=== PATIENT | female | born 1975 | race Caucasian/White ===

== ENCOUNTER → 2019-03-19 15:58 | Outpatient (BNVA) | payer BC, SELFPAY | PROVIDERS: Visit Provider Obstetrics & Gynecology | DX: D25.0 Submucous leiomyoma of uterus (principal) | CPT/HCPCS: 76830 ==

== ENCOUNTER 2019-06-24 12:52 | Outpatient (CLI) | payer BC, SELFPAY ==
--- NOTE | 2019-06-24 13:01 | MM_ITS ---
WS: [id number] BILATERAL DIGITAL SCREENING MAMMOGRAPHY WITH CAD CLINICAL INFORMATION: SCREEN HISTORY: Screening mammogram. No current complaints. COMPARISON: June 12, 2018 TECHNIQUE: Bilateral CC and MLO views. FINDINGS: The breasts are composed of heterogeneous fibroglandular density tissue, which can limit the detectio n of small underlying mass lesions. No suspicious mass, asymmetry, calcifications, or architectural d istortion. No evidence of malignancy. MM/[id number] IMPRESSION: BI-RADS: 1-Negative FOLLOW UP: 1 Year Follow-up Recommend return to annual screening mammography.
== END 2019-06-24 12:53 | disposition home or self-care (01) ==
LOC: RADSHAW 12:56
PROVIDERS: PCP Nurse Practitioner Family; Visit Provider Nurse Practitioner Family
DX: Z12.31 Encounter for screening mammogram for malignant neoplasm of breast (principal)
CPT/HCPCS: 77067

== ENCOUNTER → 2019-10-22 15:08 | Outpatient (BNVA) | payer BC, SELFPAY | PROVIDERS: PCP Nurse Practitioner Family; Referring Provider Dermatology; Visit Provider Dermatology | DX: Q82.5 Congenital non-neoplastic nevus (principal); D23.9 Other benign neoplasm of skin, unspecified; D22.9 Melanocytic nevi, unspecified | CPT/HCPCS: 99203; 99204 ==

== ENCOUNTER 2020-07-01 14:52 | Outpatient (CLI) | payer BC, SELFPAY ==
--- NOTE | 2020-07-01 14:56 | MM_ITS ---
WS: [id number] BILATERAL SCREENING DIGITAL MAMMOGRAM WITH CAD HISTORY: SCREENING COMPARISON: 06/24/2019 and 06/12/2018 Bilateral CC and MLO views submitted. Computer aided detection analyzed. Breast composition: The breasts are heterogeneously dense, which may obscure small masses. No suspici ous masses, microcalcifications or architectural distortion. MM/[id number] IMPRESSION: BI-RADS: 1-Negative FOLLOW UP: 1 Year Follow-up
== END 2020-07-01 14:53 | disposition home or self-care (01) ==
LOC: RADSHAW 14:55
PROVIDERS: PCP Nurse Practitioner Family; Visit Provider Nurse Practitioner Family
DX: Z12.31 Encounter for screening mammogram for malignant neoplasm of breast (principal)
CPT/HCPCS: 77067

== ENCOUNTER 2021-09-01 08:22 | Outpatient (CLI) | payer BC, SELFPAY ==
--- NOTE | 2021-09-01 08:35 | MM_ITS ---
WS: [id number] Exam: [place] [id number] Date/Time of Exam: 09/01/2021 8:49 AM Reason For Exam: SCREENING VIEWS: MLO and CC views both breasts. 3D digital tomosynthesis is also included in this exam. Comparison made with prior exam of 02/26/2015, 03/01/2016, 03/17/2017, 06/12/2018, 06/24/2019, 07/01/2020.. Findings: There was no sign of mass, architectural distortion or suspicious calcification in either breast. He terogeneously dense MM/[place] [id number] Impression: BI-RADS: 2-Benign FOLLOW-UP: 1 Year Follow-up This mammogram was also analyzed by the Computer Aided Detection System [employer] Publisher.
== END 2021-09-01 08:23 | disposition home or self-care (01) ==
PROVIDERS: PCP Nurse Practitioner Family; Visit Provider Nurse Practitioner Family
DX: Z12.31 Encounter for screening mammogram for malignant neoplasm of breast (principal)
CPT/HCPCS: 77063; 77067

== ENCOUNTER → 2022-05-17 11:28 | Outpatient (BNVA) | payer BC, SELFPAY | PROVIDERS: PCP Nurse Practitioner Family; Visit Provider Obstetrics & Gynecology | DX: Z12.4 Encounter for screening for malignant neoplasm of cervix (principal); D25.9 Leiomyoma of uterus, unspecified | CPT/HCPCS: 84443; 85025; 87624 ==

== ENCOUNTER 2022-05-20 12:31 | Emergency (ER) | payer BC, SELFPAY ==
[2022-05-20] VITALS (19 sets, daily range): BP systolic 118–169; BP diastolic 48–91; PULSE 94–135; RESP 14–26; TEMP 36.6–37; O2SAT 83–100; BMI 30.9
--- NOTE | 2022-05-20 14:11 | XR_ITS ---
WS: [id number] EXAMINATION: XR chest 1V portable [id number] REASON FOR EXAM: fever COMPARISON: None available. ORDER DATE: 05/20/2022 2:11 PM TECHNIQUE: A single, portable frontal chest x-ray was obtained. X-RAY FINDINGS: The lungs are clear. Pleural spaces are clear. No pleural effusions or pneumothorax. Cardiomediastinal silhouette is normal. No evidence for pulmonary edema. Soft tissue and osseous structures are unremarkable. No tubes or lines are present. XR/XR chest 1V portable [id number] IMPRESSION: Unremarkable frontal portable chest x-ray.
--- NOTE | 2022-05-20 14:13 | W.ED.FEVER ---
Documented by User: JÚNIOR Sky 05/20/22 16:32 HPI - Fever General: Chief Complaint: COVID symptoms Stated Complaint: fever, headche, stomach problems Time Seen by Provider: 05/20/22 13:38 Source: patient Mode of arrival: ambulatory Limitations: no limitations History of Present Illness: Patient is a 47-year-old female who presents to ED today with a fairly complex presentation. She states approximately 3 weeks ago she began having what she describes as UTI-like symptoms stating she was having some dysuria and urinary frequency. She was seen at [facility] walk-in clinic and placed on an antibiotic to which she does not remember the name. She states she finished the antibiotic course uneventfully but a week after she finished the course she came down with what she describes as a stomach bug with symptoms of abdominal bloating and diarrhea. She states her significant other also had similar symptoms at that time. She was re-seen in the [facility] walk-in clinic 2 days ago due to those issues. She states during that visit she had a urine repeated which again looked suspicious for UTI and was placed on Bactrim. States the diarrhea has since subsided. She states she has had 2 doses of the Bactrim. Late yesterday evening/early this morning patient began feeling acutely ill with fevers of 102, headache, chills, body aches, and a rash which is is prompting her ED visit now. Upon arrival patient appears acutely ill. Vitals overall are stable apart from fairly significant tachycardia in the 130s. MD elicited complaint: fever and other (body aches, chills) Onset (ago): hour(s) Exacerbating factors: nothing Relieving factors: nothing Associated symptoms: Reports chills, diarrhea (subsided) and headache(s); Deny abdominal pain, flank pain, chest pain, dysuria, extremity pain, nasal congestion, nausea, sinus pain or vomiting Review of Systems Const: Reports: fever(s), chills and body aches Eyes: Denies: change in vision, blurry vision, photophobia, floaters or seeing flashes ENMT: Denies: throat pain, odynophagia, ear or mastoid pain, nasal discharge, nasal congestion or sinus pain Card: Denies: chest pain Resp: Denies: dyspnea GI: Reports: diarrhea (subsided); Denies: abdominal pain, nausea or vomiting : Denies: flank pain, difficulty voiding, dysuria, urinary frequency, urinary urgency, urinary hesitancy, hematuria or pelvic pain Musc: Reports: back pain (chronic); Denies: neck pain, extremity pain, extremity swelling or joint pain Skin/Breast: Reports: rash Neuro: Reports: headache(s); Denies: numbness in extremities, weakness in extremities, sensory changes or dizziness PFSH ED PFSH: Medical History No pertinent past medical history Denies history of asthma, diabetes, hypertension, seizures, DVT/PE/clotting problems Surgical History H/O nephrolithotomy with removal of calculi Done transurethrally S/P cholecystectomy Laparoscopic procedure in her 30s S/P tubal ligation Laparoscopic procedure in 1994 via umbilicus Family History Mother Hypertension Father CAD (coronary artery disease) Other No pertinent family history Social History Smoking and tobacco status: never smoked Alcohol intake: current Alcohol intake frequency: holidays/special occasions only Alcohol type: wine 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[employer] Additional social history: Tobacco use: Denies Alcohol use: Social alcohol use once or twice a month Drug use: Denies 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 [employer] Physical Exam Const: COMMON NORMALS: average body habitus, patient oriented x3, no limitations, alert and well nourished GENERAL APPEARANCE: cooperative and ill appearing ORIENTATION/CONSCIOUSNESS: Yes awake, Yes oriented to person and Yes oriented to place HENMT: COMMON NORMALS: normocephalic and atraumatic HEAD & SCALP: normal to inspection, normocephalic and atraumatic FACE & SINUS: normal facial exam Eye: GENERAL EYE: appearance normal, both eyes and all related structures Neck/C-Spine: COMMON NORMALS: full ROM, no lymphadenopathy and no meningeal signs Chest: COMMONS NORMALS: normal inspection of the chest and normal palpation of entire chest wall Resp: COMMON NORMALS: normal respiratory effort and clear to auscultation bilaterally AUSCULTATION: clear to auscultation bilaterally Cardio: COMMON NORMALS: regular rhythm RATE: tachycardic RHYTHM: regular rhythm GI: COMMON NORMALS: Normal to inspection, nondistended, normoactive bowel sounds present, Soft to palpation, No hepatosplenomegaly present and no masses INSPECTION: Yes normal to inspection AUSCULTATION: Yes normoactive bowel sounds PALPATION: Yes Soft to palpation, Yes Tenderness to palpation present (GI) (R lower abdomen/suprapubic), No Guarding due to palpation present (GI), No Rigid due to palpation and Yes No hepatosplenomegaly present : COMMON NORMALS: Yes no CVA tenderness BLADDER/KIDNEY EXAM: Yes no CVA tenderness Back/Pelvis: COMMON NORMALS: no CVA tenderness Extremity: COMMON NORMALS: normal to inspection GENERAL: Yes normal exam except as noted Neuro: SUSAN COMA SCALE: document GCS findings Sawyer coma scale eye opening: Spontaneous Susan coma scale verbal response: Orientated Susan coma scale motor response: Obey commands Susan coma scale total score: 15 COMMON NORMALS: patient oriented x3 SENSORIUM/ORIENTATION: Yes alert, Yes oriented to person and Yes oriented to place MENINGEAL SIGNS: Yes no meningeal signs Skin: RASHES: rashes noted OTHER: Faint macular rash mainly noted to lower extremities. No ocular or mucosal involvement. No skin sloughing or blistering. Course Vital Signs: Vital signs: Vital Signs Temperature 98.6 F 05/20/22 14:18 Pulse Rate 95 05/20/22 20:15 Respiratory Rate 26 H 05/20/22 19:30 Blood Pressure 134/66 05/20/22 20:15 Pulse Oximetry 97 05/20/22 20:15 Oxygen Delivery Me thod Room Air 05/20/22 13:39 MDM - Fever Lab Data 05/20/22 14:43 05/20/22 14:43 Radiology Impressions Chest X-Ray 05/20/22 14:11 IMPRESSION: Unremarkable frontal portable chest x-ray. Abdomen/Pelvis CT 05/20/22 16:27 IMPRESSION: 1. Previous cholecystectomy. 2. No findings of urinary tract stone or obstructive uropathy or perinephric stranding. 3. Urinary bladder is not well distended and without focal abnormality. 4. Uterine enlargement. Laboratory Results WBC 12.1 10^3/uL (4.0-10.0) H 05/20/22 14:43 RBC 4.54 10^6/uL (4.1-5.3) 05/20/22 14:43 Hgb 11.1 g/dL (11.5-15.3) L 05/20/22 14:43 Hct 35.0 % (37.0-47.0) L 05/20/22 14:43 MCV 77.1 fl (81-99) L 05/20/22 14:43 MCH 24.4 pg (28.0-34.0) L 05/20/22 14:43 MCHC 31.7 g/dL (30.0-36.0) 05/20/22 14:43 RDW 13.6 % (12.1-15.1) 05/20/22 14:43 Plt Count 428 10^3/cmm (130-400) H 05/20/22 14:43 MPV 9.3 fL (7.4-10.4) 05/20/22 14:43 Neut % (Auto) 94.7 % 05/20/22 14:43 Lymph % (Auto) 1.6 % 05/20/22 14:43 [place] % (Auto) 2.1 % 05/20/22 14:43 Eos % (Auto) 1.1 % 05/20/22 14:43 Baso % (Auto) 0.1 % 05/20/22 14:43 Neut # (Auto) 11.49 10^3/uL (1.8-7.7) H 05/20/22 14:43 Lymph # (Auto) 0.2 10^3/uL (0.8-4.8) L 05/20/22 14:43 [place] # (Auto) 0.3 10^3/uL (0.2-0.9) 05/20/22 14:43 Eos # (Auto) 0.1 10^3/uL (0.0-0.8) 05/20/22 14:43 Baso # (Auto) 0.0 10^3/uL (0.0-0.1) 05/20/22 14:43 Nucleated RBC % (auto) 0 % 05/20/22 14: Nucleated RBCs # 0.0 /100WBC 05/20/22 14:43 Sodium 138 mmol/L (136-145) 05/20/22 14:43 Potassium 3.9 mmol/L (3.5-5.1) 05/20/22 14:43 Chloride 103 mmol/L (98-107) 05/20/22 14:43 Carbon Dioxide 21 mmol/L (22-29) L 05/20/22 14:43 Anion Gap 17.9 (5-19) 05/20/22 14:43 BUN 8 mg/dL (6-20) 05/20/22 14:43 Creatinine 0.8 mg/dL (0.5-0.9) 05/20/22 14:43 GFR Calculation 76.2 mL/min (90-130) L 05/20/22 14:43 Glucose 92 mg/dL (65-115) 05/20/22 14:43 Calculated Osmolality 284 mOsm/kg (285-295) L 05/20/22 14:43 Lactic Acid 2.4 mmol/L (0.5-2.2) H 05/20/22 14:43 Lactic Acid (Sepsis) 1.1 mmol/L (0.5-2.2) 05/20/22 17:17 Calcium 8.2 mg/dL (8.5-10.5) L 05/20/22 14:43 Total Bilirubin 0.2 mg/dL (0.15-1.2) 05/20/22 14:43 AST 13 U/L (0-32) 05/20/22 14:43 ALT 6 U/L (0-33) 05/20/22 14:43 Alkaline Phosphatase 108 U/L (35-105) H 05/20/22 14:43 Troponin T Baseline 6 ng/L (0-10) 05/20/22 19:14 C-Reactive Protein 53.8 mg/L (0.0-4.9) H 05/20/22 14:43 Total Protein 7.2 g/dL (6.6-8.7) 05/20/22 14:43 Albumin 3.6 g/dL (3.5-5.2) 05/20/22 14:43 Globulin 3.6 g/dL (1.3-4.6) 05/20/22 14:43 Urine Color Yellow (Yellow) 05/20/22 14:20 Urine Appearance Clear (CLEAR) 05/20/22 14:20 Urine pH 5 (5-7) 05/20/22 14:20 Ur Specific [place] 1.020 (1.005-1.030) 05/20/22 14:20 Urine Protein 1+ (Negative) H 05/20/22 14:20 Urine Glucose (UA) Norm (Normal) 05/20/22 14:20 Urine Ketones 1+ (Negative) H 05/20/22 14:20 Urine Blood 2+ (Negative) H 05/20/22 14:20 Urine Nitrate Negative (Negative) 05/20/22 14:20 Urine Bilirubin Neg (Negative) 05/20/22 14:20 Urine Urobilinogen 1 mg/dL (Negative) H 05/20/22 14:20 Ur Leukocyte Esterase Trace (Negative) H 05/20/22 14:20 Urine RBC 5-10 /hpf (0-2) H 05/20/22 14:20 Urine WBC 5-10 /hpf (0-5) H 05/20/22 14:20 Ur Squamous Epith Cells 5-10 /hpf (0-5) H 05/20/22 14:20 Amorphous Sediment Not Reportable 05/20/22 14:20 Urine Bacteria Trace /hpf (NONE) 05/20/22 14:20 Urine Mucus 2+ /hpf 05/20/22 14:20 Coronavirus 229E (PCR) Not detected (NOT DETECT) 05/20/22 14:21 Influenza Type A Ag negative (Negative) 05/20/22 14:21 Influenza Type B Ag negative (Negative) 05/20/22 14:21 SARS-CoV-2 (PCR) Not detected (NOT DETECT) 05/20/22 14:21 Discharge Plan Discharge Patient Disposition: Home Clinical Impression: Adverse reaction to sulfa antibiotic Qualifiers: Encounter type: initial encounter Qualified Code(s): T37.0X5A - Adverse effect of sulfonamides, initial encounter UTI (urinary tract infection) Qualifiers: Urinary tract infection type: acute cystitis Hematuria presence: with hematuria Qualified Code(s): N30.01 - Acute cystitis with hematuria Condition: Stable Prescriptions: New prednisone 20 mg tablet 20 mg PO BID 3 Days Qty: 6 0RF cefdinir 300 mg capsule 300 mg PO BID 10 Days Qty: 20 0RF No Action norethindrone-e.estradiol-iron [Microgestin Fe .5/30 (28)] 1.5 mg-30 mcg (21)/75 mg (7) tablet 1 tab PO DAILY loratadine [Claritin] 10 mg tablet 10 mg PO DAILY ketoconazole 2 % shampoo 1 applic TOPICAL Q14D fluocinonide 0.05 % solution 1 applic TOPICAL BID citalopram [Celexa] 20 mg tablet 30 mg PO DAILY oxybutynin chloride [Ditropan XL] 5 mg tablet extended release 24hr 5 mg PO DAILY Qty: 30 3RF Urelle 81-10.8-40.8 mg tablet 1 tab PO BID Qty: 60 3RF Rx Instructions: administer with plenty of fluids Discharge Orders: Discharge ED (Routine); Ordered 05/20/22 Ordered By: Festus Guerin Referrals: Estrellita Walsh FNP [Primary Care Provider] - Discharge Diet: Regular Discharge Activity: Increase activity as tolerated Patient Instructions: Urinary Tract Infection in Women (DC), Adverse Drug Reaction (ED) Activity Restrictions/Additional Instructions: Follow-up with medical provider as directed in the next 3 to 5 days for reevaluation. Take medications as prescribed. Return to the ER or your medical provider if condition worsens. Please read and understand discharge instructions. Thank you for choosing [facility] for your healthcare needs today. Please realize this is an emergency room and that we are providing you with a medical screening exam and this may not be complete and all inclusive of all the testing and or work up that you may need to determine your ailment or severity of your illness. It is very important that you follow up as instructed or that you return to the Emergency Department should you have concerns or if your condition changes or worsens in any way. Sign Out Sign Out Data: Patient Sign Out occurred on 05/20/22 at 17:13. Patient's care was discussed, and care was transferred from to JÚNIOR De La O. Coding Level of Care Code ED Solvent Recoverer for Chg Fwd Documented by User: JÚNIOR De La O 05/20/22 20:26 HPI - Fever General: Chief Complaint: COVID symptoms Stated Complaint: fever, headche, stomach problems Time Seen by Provider: 05/20/22 13:38 Review of Systems Const: Reports: malaise [facility] ED PFSH: Medical History No pertinent past medical history Denies history of asthma, diabetes, hypertension, seizures, DVT/PE/clotting problems Surgical History H/O nephrolithotomy with removal of calculi Done transurethrally S/P cholecystectomy Laparoscopic procedure in her 30s S/P tubal ligation Laparoscopic procedure in 1994 via umbilicus Family History Mother Hypertension Father CAD (coronary artery disease) Other No pertinent family history Social History Smoking and tobacco status: never smoked Alcohol intake: current Alcohol intake frequency: holidays/special occasions only Alcohol type: wine 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[employer] Additional social history: Tobacco use: Denies Alcohol use: Social alcohol use once or twice a month Drug use: Denies 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 History, exam and most of work-up was done by Destinee Hayward. CT of abdomen pelvis was pending during patient handoff. Patient is a 47-year-old female comes to the ED with fever, chills and headache. Patient had a UTI and took first 2 doses of Bactrim and developed a rash on extremities, elevated heart rate and generalized malaise. At triage patient's pulse was 135 and she was afebrile and rest of vitals are stable. Initial work-up was done to see if patient had UTI that progressed into pyelonephritis. White blood cell count 12.1 CRP 53.8 and first lactic was 2.4. Blood cultures pending and UA showed possible UTI. Chest x-ray was unremarkable and CT of abdomen pelvis showed no acute findings. EKG showed normal sinus rhythm, [address] segment elevation or depression seen. Baseline troponin 6. Patient was given 2 L of IV fluids, Pepcid, Solu-Medrol, pain meds and Rocephin. Lactic went down to 1.1. Rash resolved and patient was feeling a lot better. Vitals are stable and pulse was between 85 to 95 bpm. Rash resolved after the Solu-Medrol. patient was likely having some adverse reaction to Bactrim on top of a UTI. She was stable for discharge home and sent with a prescription for cefdinir and a couple days of prednisone. She was given strict return to ED precautions. Follow-up with her PCP within the next 3 to 5 days. Patient understood and agreed with plan. I discussed patient case with Dr. Garcia and he agreed with plan as well. Lab Data I reviewed the patient's lab results. 05/20/22 14:43 05/20/22 14:43 Radiology Impressions Chest X-Ray 05/20/22 14:11 IMPRESSION: Unremarkable frontal portable chest x-ray. Abdomen/Pelvis CT 05/20/22 16:27 IMPRESSION: 1. Previous cholecystectomy. 2. No findings of urinary tract stone or obstructive uropathy or perinephric stranding. 3. Urinary bladder is not well distended and without focal abnormality. 4. Uterine enlargement. Laboratory Results WBC 12.1 10^3/uL (4.0-10.0) H 05/20/22 14:43 RBC 4.54 10^6/uL (4.1-5.3) 05/20/22 14:43 Hgb 11.1 g/dL (11.5-15.3) L 05/20/22 14:43 Hct 35.0 % (37.0-47.0) L 05/20/22 14:43 MCV 77.1 fl (81-99) L 05/20/22 14:43 MCH 24.4 pg (28.0-34.0) L 05/20/22 14:43 MCHC 31.7 g/dL (30.0-36.0) 05/20/22 14:43 RDW 13.6 % (12.1-15.1) 05/20/22 14:43 Plt Count 428 10^3/cmm (130-400) H 05/20/22 14:43 MPV 9.3 fL (7.4-10.4) 05/20/22 14:43 Neut % (Auto) 94.7 % 05/20/22 14:43 Lymph % (Auto) 1.6 % 05/20/22 14:43 [place] % (Auto) 2.1 % 05/20/22 14:43 Eos % (Auto) 1.1 % 05/20/22 14:43 Baso % (Auto) 0.1 % 05/20/22 14:43 Neut # (Auto) 11.49 10^3/uL (1.8-7.7) H 05/20/22 14:43 Lymph # (Auto) 0.2 10^3/uL (0.8-4.8) L 05/20/22 14:43 [place] # (Auto) 0.3 10^3/uL (0.2-0.9) 05/20/22 14:43 Eos # (Auto) 0.1 10^3/uL (0.0-0.8) 05/20/22 14:43 Baso # (Auto) 0.0 10^3/uL (0.0-0.1) 05/20/22 14:43 Nucleated RBC % (auto) 0 % 05/20/22 14:43 Nucleated RBCs # 0.0 /100WBC 05/20/22 14:43 Sodium 138 mmol/L (136-145) 05/20/22 14:43 Potassium 3.9 mmol/L (3.5-5.1) 05/20/22 14:43 Chloride 103 mmol/L (98-107) 05/20/22 14:43 Carbon Dioxide 21 mmol/L (22-29) L 05/20/22 14:43 Anion Gap 17.9 (5-19) 05/20/22 14:43 BUN 8 mg/dL (6-20) 05/20/22 14:43 Creatinine 0.8 mg/dL (0.5-0.9) 05/20/22 14:43 GFR Calculation 76.2 mL/min (90-130) L 05/20/22 14:43 Glucose 92 mg/dL (65-115) 05/20/22 14:43 Calculated Osmolality 284 mOsm/kg (285-295) L 05/20/22 14:43 Lactic Acid 2.4 mmol/L (0.5-2.2) H 05/20/22 14:43 Lactic Acid (Sepsis) 1.1 mmol/L (0.5-2.2) 05/20/22 17:17 Calcium 8.2 mg/dL (8.5-10.5) L 05/20/22 14:43 Total Bilirubin 0.2 mg/dL (0.15-1.2) 05/20/22 14:43 AST 13 U/L (0-32) 05/20/22 14:43 ALT 6 U/L (0-33) 05/20/22 14:43 Alkaline Phosphatase 108 U/L (35-105) H 05/20/22 14:43 Troponin T Baseline 6 ng/L (0-10) 05/20/22 19:14 C-Reactive Protein 53.8 mg/L (0.0-4.9) H 05/20/22 14:43 Total Protein 7.2 g/dL (6.6-8.7) 05/20/22 14:43 Albumin 3.6 g/dL (3.5-5.2) 05/20/22 14:43 Globulin 3.6 g/dL (1.3-4.6) 05/20/22 14:43 Urine Color Yellow (Yellow) 05/20/22 14:20 Urine Appearance Clear (CLEAR) 05/20/22 14:20 Urine pH 5 (5-7) 05/20/22 14:20 Ur Specific [place] 1.020 (1.005-1.030) 05/20/22 14:20 Urine Protein 1+ (Negative) H 05/20/22 14:20 Urine Glucose (UA) Norm (Normal) 05/20/22 14:20 Urine Ketones 1+ (Negative) H 05/20/22 14:20 Urine Blood 2+ (Negative) H 05/20/22 14:20 Urine Nitrate Negative (Negative) 05/20/22 14:20 Urine Bilirubin Neg (Negative) 05/20/22 14:20 Urine Urobilinogen 1 mg/dL (Negative) H 05/20/22 14:20 Ur Leukocyte Esterase Trace (Negative) H 05/20/22 14:20 Urine RBC 5-10 /hpf (0-2) H 05/20/22 14:20 Urine WBC 5-10 /hpf (0-5) H 05/20/22 14:20 Ur Squamous Epith Cells 5-10 /hpf (0-5) H 05/20/22 14:20 Amorphous Sediment Not Reportable 05/20/22 14:20 Urine Bacteria Trace /hpf (NONE) 05/20/22 14:20 Urine Mucus 2+ /hpf 05/20/22 14:20 Coronavirus 229E (PCR) Not detected (NOT DETECT) 05/20/22 14:21 Influenza Type A Ag negative (Negative) 05/20/22 14:21 Influenza Type B Ag negative (Negative) 05/20/22 14:21 SARS-CoV-2 (PCR) Not detected (NOT DETECT) 05/20/22 14:21 Discharge Plan Discharge Patient Disposition: Home Clinical Impression: Adverse reaction to sulfa antibiotic Qualifiers: Encounter type: initial encounter Qualified Code(s): T37.0X5A - Adverse effect of sulfonamides, initial encounter UTI (urinary tract infection) Qualifiers: Urinary tract infection type: acute cystitis Hematuria presence: with hematuria Qualified Code(s): N30.01 - Acute cystitis with hematuria Condition: Stable Prescriptions: New prednisone 20 mg tablet 20 mg PO BID 3 Days Qty: 6 0RF cefdinir 300 mg capsule 300 mg PO BID 10 Days Qty: 20 0RF No Action norethindrone-e.estradiol-iron [Microgestin Fe 1.5/30 (28)] 1.5 mg-30 mcg (21)/75 mg (7) tablet 1 tab PO DAILY loratadine [Claritin] 10 mg tablet 10 mg PO DAILY ketoconazole 2 % shampoo 1 applic TOPICAL Q14D fluocinonide 0.05 % solution 1 applic TOPICAL BID citalopram [Celexa] 20 mg tablet 30 mg PO DAILY oxybutynin chloride [Ditropan XL] 5 mg tablet extended release 24hr 5 mg PO DAILY Qty: 30 3RF Urelle 81-10.8-40.8 mg tablet 1 tab PO BID Qty: 60 3RF Rx Instructions: administer with plenty of fluids Discharge Orders: Discharge ED (Routine); Ordered 05/20/22 Ordered By: Festus Guerin Referrals: Estrellita Walsh FNP [Primary Care Provider] - Discharge Diet: Regular Discharge Activity: Increase activity as tolerated Patient Instructions: Urinary Tract Infection in Women (DC), Adverse Drug Reaction (ED) Activity Restrictions/Additional Instructions: Follow-up with medical provider as directed in the next 3 to 5 days for reevaluation. Take medications as prescribed. Return to the ER or your medical provider if condition worsens. Please read and understand discharge instructions. Thank you for choosing [facility] for your healthcare needs today. Please realize this is an emergency room and that we are providing you with a medical screening exam and this may not be complete and all inclusive of all the testing and or work up that you may need to determine your ailment or severity of your illness. It is very important that you follow up as instructed or that you return to the Emergency Department should you have concerns or if your condition changes or worsens in any way. Sign Out Sign Out Data: Patient Sign Out occurred on 05/20/22 at 17:13. Patient's care was discussed, and care was transferred from to JÚNIOR De La O. Coding Level of Care Code ED Solvent Recoverer for Chg Fwd Documented by User: Michele Garcia, 05/21/22 02:46 HPI - Fever General: Chief Complaint: COVID symptoms Stated Complaint: fever, headche, stomach problems Time Seen by Provider: 05/20/22 13:38 PFSH ED PFSH: Medical History No pertinent past medical history Denies history of asthma, diabetes, hypertension, seizures, DVT/PE/clotting problems Surgical History H/O nephrolithotomy with removal of calculi Done transurethrally S/P cholecystectomy Laparoscopic procedure in her 30s S/P tubal ligation Laparoscopic procedure in 1994 via umbilicus Family History Mother Hypertension Father CAD (coronary artery disease) Other No pertinent family history Social History Smoking and tobacco status: never smoked Alcohol intake: current Alcohol intake frequency: holidays/special occasions only Alcohol type: wine 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[employer] Additional social history: Tobacco use: Denies Alcohol use: Social alcohol use once or twice a month Drug use: Denies 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 History, exam and most of work-up was done by Destinee Hayward. CT of abdomen pelvis was pending during patient handoff. Patient is a 47-year-old female comes to the ED with fever, chills and headache. Patient had a UTI and took first 2 doses of Bactrim and developed a rash on extremities, elevated heart rate and generalized malaise. At triage patient's pulse was 135 and she was afebrile and rest of vitals are stable. Initial work-up was done to see if patient had UTI that progressed into pyelonephritis. White blood cell count 12.1 CRP 53.8 and first lactic was 2.4. Blood cultures pending and UA showed possible UTI. Chest x-ray was unremarkable and CT of abdomen pelvis showed no acute findings. EKG showed normal sinus rhythm, [address] segment elevation or depression seen. Baseline troponin 6. Patient was given 2 L of IV fluids, Pepcid, Solu-Medrol, pain meds and Rocephin. Lactic went down to 1.1. Rash resolved and patient was feeling a lot better. Vitals are stable and pulse was between 85 to 95 bpm. Rash resolved after the Solu-Medrol. patient was likely having some adverse reaction to Bactrim on top of a UTI. She was stable for discharge home and sent with a prescription for cefdinir and a couple days of prednisone. She was given strict return to ED precautions. Follow-up with her PCP within the next 3 to 5 days. Patient understood and agreed with plan. I discussed patient case with Dr. Garcia and he agreed with plan as well. This patient was originally seen by Mr. Apoorva PA-C.? I agree with his history, evaluation, and treatment. Lab Data 05/20/22 14:43 05/20/22 14:43 Radiology Impressions Chest X-Ray 05/20/22 14:11 IMPRESSION: Unremarkable frontal portable chest x-ray. Abdomen/Pelvis CT 05/20/22 16:27 IMPRESSION: 1. Previous cholecystectomy. 2. No findings of urinary tract stone or obstructive uropathy or perinephric stranding. 3. Urinary bladder is not well distended and without focal abnormality. 4. Uterine enlargement. Laboratory Results WBC 12.1 10^3/uL (4.0-10.0) H 05/20/22 14:43 RBC 4.54 10^6/uL (4.1-5.3) 05/20/22 14:43 Hgb 11.1 g/dL (11.5-15.3) L 05/20/22 14:43 Hct 35.0 % (37.0-47.0) L 05/20/22 14:43 MCV 77.1 fl (81-99) L 05/20/22 14:43 MCH 24.4 pg (28.0-34.0) L 05/20/22 14:43 MCHC 31.7 g/dL (30.0-36.0) 05/20/22 14:43 RDW 13.6 % (12.1-15.1) 05/20/22 14:43 Plt Count 428 10^3/cmm (130-400) H 05/20/22 14:43 MPV 9.3 fL (7.4-10.4) 05/20/22 14:43 Neut % (Auto) 94.7 % 05/20/22 14:43 Lymph % (Auto) 1.6 % 05/20/22 14:43 [place] % (Auto) 2.1 % 05/20/22 14:43 Eos % (Auto) 1.1 % 05/20/22 14:43 Baso % (Auto) 0.1 % 05/20/22 14:43 Neut # (Auto) 11.49 10^3/uL (1.8-7.7) H 05/20/22 14:43 Lymph # (Auto) 0.2 10^3/uL (0.8-4.8) L 05/20/22 14:43 [place] # (Auto) 0.3 10^3/uL (0.2-0.9) 05/20/22 14:43 Eos # (Auto) 0.1 10^3/uL (0.0-0.8) 05/20/22 14:43 Baso # (Auto) 0.0 10^3/uL (0.0-0.1) 05/20/22 14:43 Nucleated RBC % (auto) 0 % 05/20/22 14:43 Nucleated RBCs # 0.0 /100WBC 05/20/22 14:43 Sodium 138 mmol/L (136-145) 05/20/22 14:43 Potassium 3.9 mmol/L (3.5-5.1) 05/20/22 14:43 Chloride 103 mmol/L (98-107) 05/20/22 14:43 Carbon Dioxide 21 mmol/L (22-29) L 05/20/22 14:43 Anion Gap 17.9 (5-19) 05/20/22 14:43 BUN 8 mg/dL (6-20) 05/20/22 14:43 Creatinine 0.8 mg/dL (0.5-0.9) 05/20/22 14:43 GFR Calculation 76.2 mL/min (90-130) L 05/20/22 14:43 Glucose 92 mg/dL (65-115) 05/20/22 14:43 Calculated Osmolality 284 mOsm/kg (285-295) L 05/20/22 14:43 Lactic Acid 2.4 mmol/L (0.5-2.2) H 05/20/22 14:43 Lactic Acid (Sepsis) 1.1 mmol/L (0.5-2.2) 05/20/22 17:17 Calcium 8.2 mg/dL (8.5-10.5) L 05/20/22 14:43 Total Bilirubin 0.2 mg/dL (0.15-1.2) 05/20/22 14:43 AST 13 U/L (0-32) 05/20/22 14:43 ALT 6 U/L (0-33) 05/20/22 14:43 Alkaline Phosphatase 108 U/L (35-105) H 05/20/22 14:43 Troponin T Baseline 6 ng/L (0-10) 05/20/22 19:14 C-Reactive Protein 53.8 mg/L (0.0-4.9) H 05/20/22 14:43 Total Protein 7.2 g/dL (6.6-8.7) 05/20/22 14:43 Albumin 3.6 g/dL (3.5-5.2) 05/20/22 14:43 Globulin 3.6 g/dL (1.3-4.6) 05/20/22 14:43 Urine Color Yellow (Yellow) 05/20/22 14:20 Urine Appearance Clear (CLEAR) 05/20/22 14:20 Urine pH 5 (5-7) 05/20/22 14:20 Ur Specific [place] 1.020 (1.005-1.030) 05/20/22 14:20 Urine Protein 1+ (Negative) H 05/20/22 14:20 Urine Glucose (UA) Norm (Normal) 05/20/22 14:20 Urine Ketones 1+ (Negative) H 05/20/22 14:20 Urine Blood 2+ (Negative) H 05/20/22 14:20 Urine Nitrate Negative (Negative) 05/20/22 14:20 Urine Bilirubin Neg (Negative) 05/20/22 14:20 Urine Urobilinogen 1 mg/dL (Negative) H 05/20/22 14:20 Ur Leukocyte Esterase Trace (Negative) H 05/20/22 14:20 Urine RBC 5-10 /hpf (0-2) H 05/20/22 14:20 Urine WBC 5-10 /hpf (0-5) H 05/20/22 14:20 Ur Squamous Epith Cells 5-10 /hpf (0-5) H 05/20/22 14:20 Amorphous Sediment Not Reportable 05/20/22 14:20 Urine Bacteria Trace /hpf (NONE) 05/20/22 14:20 Urine Mucus 2+ /hpf 05/20/22 14:20 Coronavirus 229E (PCR) Not detected (NOT DETECT) 05/20/22 14:21 Influenza Type A Ag negative (Negative) 05/20/22 14:21 Influenza Type B Ag negative (Negative) 05/20/22 14:21 SARS-CoV-2 (PCR) Not detected (NOT DETECT) 05/20/22 14:21 Discharge Plan Discharge Patient Disposition: Home Clinical Impression: Adverse reaction to sulfa antibiotic Qualifiers: Encounter type: initial encounter Qualified Code(s): T37.0X5A - Adverse effect of sulfonamides, initial encounter UTI (urinary tract infection) Qualifiers: Urinary tract infection type: acute cystitis Hematuria presence: with hematuria Qualified Code(s): N30.01 - Acute cystitis with hematuria Condition: Stable Prescriptions: New prednisone 20 mg tablet 20 mg PO BID 3 Days Qty: 6 0RF cefdinir 300 mg capsule 300 mg PO BID 10 Days Qty: 20 0RF No Action norethindrone-e.estradiol-iron [Microgestin Fe 1.5/30 (28)] 1.5 mg-30 mcg (21)/75 mg (7) tablet 1 tab PO DAILY loratadine [Claritin] 10 mg tablet 10 mg PO DAILY ketoconazole 2 % shampoo 1 applic TOPICAL Q14D fluocinonide 0.05 % solution 1 applic TOPICAL BID citalopram [Celexa] 20 mg tablet 30 mg PO DAILY oxybutynin chloride [Ditropan XL] 5 mg tablet extended release 24hr 5 mg PO DAILY Qty: 30 3RF Urelle 81-10.8-40.8 mg tablet 1 tab PO BID Qty: 60 3RF Rx Instructions: administer with plenty of fluids Discharge Orders: Discharge ED (Routine); Ordered 05/20/22 Ordered By: Festus Guerin Referrals: Walsh,JERSON HaroP [Primary Care Provider] - Discharge Diet: Regular Discharge Activity: Increase activity as tolerated Patient Instructions: Urinary Tract Infection in Women (DC), Adverse Drug Reaction (ED) Activity Restrictions/Additional Instructions: Follow-up with medical provider as directed in the next 3 to 5 days for reevaluation. Take medications as prescribed. Return to the ER or your medical provider if condition worsens. Please read and understand discharge instructions. Thank you for choosing [facility] for your healthcare needs today. Please realize this is an emergency room and that we are providing you with a medical screening exam and this may not be complete and all inclusive of all the testing and or work up that you may need to determine your ailment or severity of your illness. It is very important that you follow up as instructed or that you return to the Emergency Department should you have concerns or if your condition changes or worsens in any way. Sign Out Sign Out Data: Patient Sign Out occurred on 05/20/22 at 17:13. Patient's care was discussed, and care was transferred from to JÚNIOR De La O. Coding Level of Care Code ED Solvent Recoverer for Julián Angel
[2022-05-20 14:41] LABS: Urine Appearance Clear (CLEAR); Urine Color Yellow (Yellow); pH Urine 5 (5-7)
[2022-05-20 14:42] LABS: Add Urine Microscopic? YES; Bilirubin Urine Neg (Negative); Blood Urine 2+ (Negative); Glucose Urine UA Norm (Normal); Ketones Urine 1+ (Negative); Leukocyte Esterase Urine Trace (Negative); Nitrate Urine Negative (Negative); Protein Urine 1+ (Negative); Urobilinogen Urine 1 mg/dL (Negative)
[2022-05-20 14:47] LABS: Influenza A by IFA negative (Negative); Influenza B by IFA negative (Negative)
[2022-05-20 14:51] LABS: Bacteria Urine TRACE /hpf; Mucus Urine 2+ /hpf
[2022-05-20 14:52] LABS: Add Urine Culture? No
[2022-05-20 15:08] LABS: Basophils % 0.1 %; Eosinophils # 0.1 10^3/uL (0.0-0.8); Eosinophils % 1.1 %; Hemoglobin 11.1 g/dL (11.5-15.3); Lymphocytes # 0.2 10^3/uL (0.8-4.8); Lymphocytes % 1.6 %; Mean Corpuscular HGB Conc 31.7 g/dL (30.0-36.0); Mean Corpuscular Hemoglobin 24.4 pg (28.0-34.0); Mean Corpuscular Volume 77.1 fl (81-99); Mean Platelet Volume 9.3 fL (7.4-10.4); Monocytes # 0.3 10^3/uL (0.2-0.9); Monocytes % 2.1 %; Neutrophils # 11.49 10^3/uL (1.8-7.7); Neutrophils % 94.7 %; Nucleated Red Blood Cells % 0 %; Platelet Count 428 10^3/cmm (130-400); Red Blood Count 4.54 10^6/uL (4.1-5.3); Red Cell Distribution Width 13.6 % (12.1-15.1); White Blood Count 12.1 10^3/uL (4.0-10.0)
[2022-05-20] MEDS: acetaminophen 1,000 MG/100 ML PIGGYBACK 400 MG IV (15:14)
[2022-05-20] MEDS: sodium chloride 0.9% 1,000 ML 999 ML IV ×2 (15:14→18:17)
[2022-05-20 15:26] LABS: Lactic Sepsis W/Reflex 2.4 mmol/L (0.5-2.2)
[2022-05-20 15:27] LABS: Alanine Aminotransferase 6 U/L (0-33); Albumin Level 3.6 g/dL (3.5-5.2); Alkaline Phosphatase 108 U/L (35-105); Anion Gap 17.9 (5-19); Aspartate Amino Transferase 13 U/L (0-32); Blood Urea Nitrogen 8 mg/dL (6-20); C Reactive Protein 53.8 mg/L (0.0-4.9); Calcium 8.2 mg/dL (8.5-10.5); Carbon Dioxide 21 mmol/L (22-29); Chloride 103 mmol/L (98-107); Globulin 3.6 g/dL (1.3-4.6); Glomerular Filtration Rate 76.2 mL/min (90-130); Glucose 92 mg/dL (65-115); Osmolality Calculated 284 mOsm/kg (285-295); Potassium 3.9 mmol/L (3.5-5.1); Sodium 138 mmol/L (136-145); Total Bilirubin 0.2 mg/dL (0.15-1.2); Total Protein 7.2 g/dL (6.6-8.7)
[2022-05-20 16:09] LABS: Adenovirus Not Detected (NOT DETECT); Chlamydia Pneumoniae Not Detected (NOT DETECT); Coronavirus 229E,HKU1,NL63,OC4 Not Detected (NOT DETECT); Human Metapneumovirus Not Detected (NOT DETECT); Human Rhinovirus/Enterovirus Not Detected (NOT DETECT); Influenza A Not Detected (NOT DETECT); Influenza A H1 Not Detected (NOT DETECT); Influenza A H1-2009 Not Detected (NOT DETECT); Influenza A H3 Not Detected (NOT DETECT); Influenza B Not Detected (NOT DETECT); Mycoplasma Pneumoniae Not Detected (NOT DETECT); Parainfluenza Virus Type 1 Not Detected (NOT DETECT); Parainfluenza Virus Type 2 Not Detected (NOT DETECT); Parainfluenza Virus Type 3 Not Detected (NOT DETECT); Parainfluenza Virus Type 4 Not Detected (NOT DETECT); Respiratory Syncytial Virus A Not Detected (NOT DETECT); Respiratory Syncytial Virus B Not Detected (NOT DETECT); SARS-COV-2 Not Detected (NOT DETECT)
--- NOTE | 2022-05-20 16:27 | CTR_ITS ---
PROCEDURE INFORMATION: Exam: CT Abdomen And Pelvis Without Contrast Exam date and time: 05/20/2022 4:37 PM Age: 47 years old Clinical indication: Abdominal pain; Other: Low abd pain/back pain; Prior surgery; Surgery type: Tubal; Nephrolithotomy w/removal of calculi; Olivia; Additional info: Lower abdominal pain, fevers, poss UTI TECHNIQUE: Imaging protocol: Computed tomography of the abdomen and pelvis without contrast. Radiation optimization: All CT scans at this facility use at least one of these dose optimization techniques: automated exposure control; mA and/or kV adjustment per patient size (includes targeted exams where dose is matched to clinical indication); or iterative reconstruction. REPORTING DATA: Count of CT and Cardiac NM exams in prior 12 months: This patient has received 0 known CTs and 0 known cardiac nuclear medicine studies in the 12 months prior to the current study. COMPARISON: CR XR KUB [id number] 07/31/2018 8:07 AM RADIATION DOSE METRICS: Total DLP (mGy-cm): 684.18 FINDINGS: Lungs: No significant infiltrate or effusion is seen within the lung bases. Liver: Normal. No mass. Gallbladder and bile ducts: Surgical clips within the gallbladder fossa of prior cholecystectomy. No biliary ductal dilatation. Pancreas: Normal. No ductal dilation. Spleen: Normal. No splenomegaly. Adrenal glands: Normal. No mass. Kidneys and ureters: No urinary tract stone or obstructive uropathy. Kidneys appear unremarkable in density for noncontrast exam. No abnormal perinephric stranding is seen. Stomach and bowel: Left colon appears relatively decompressed in relation to the remainder of the colon. No significant focal abnormality, otherwise. No CT findings of diverticulitis. No bowel obstruction. Appendix: No evidence of appendicitis. Intraperitoneal space: Unremarkable. No free air. No significant fluid collection. Vasculature: Unremarkable. No abdominal aortic aneurysm. Lymph nodes: Unremarkable. No enlarged lymph nodes. Urinary bladder: Urinary bladder is not well distended and without focal abnormality. Reproductive: Uterine enlargement suggested, with uterus measuring 12 cm on sagittal exam and 10 x 7 cm on axial exam. Uterus appears unremarkable in density for noncontrast exam. No significant adnexal abnormality. Bones/joints: No acute osseous abnormality. Soft tissues: Unremarkable. CT/CT kidney stone [id number] IMPRESSION: 1. Previous cholecystectomy. 2. No findings of urinary tract stone or obstructive uropathy or perinephric stranding. 3. Urinary bladder is not well distended and without focal abnormality. 4. Uterine enlargement.
[2022-05-20] MEDS: ketorolac 30 mg/mL INJ 15 MG IVP (16:35)
[2022-05-20 16:52] LABS: Reflex Lactate Order REFLEX LACTIC ORDERD
[2022-05-20] MEDS: morphine 4 mg/mL SDV 1 mL IVP (17:35)
[2022-05-20] MEDS: orphenadrine 30 mg/mL Inj 2 mL 60 MG IVP (17:35)
[2022-05-20] MEDS: cefTRIAXone 1,000 MG in sodium chloride 0.9% (plus) 50 ML 100 MG IV ×2 (18:17→19:07)
[2022-05-20 18:25] LABS: Lactic Acid level (Lactate) 1.1 mmol/L (0.5-2.2)
[2022-05-20] MEDS: famotidine 20 mg/2 mL INJ 40 MG IVP (18:34)
[2022-05-20] MEDS: ondansetron 2 mg/ML SDV 2 mL 4 MG IVP (18:34)
--- NOTE | 2022-05-20 19:03 | ECG_ITS ---
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 Measurements Intervals [place] Rate: 89 P: 56 TN: 142 QRS: 24 QRSD: 93 T: 3 QT: 387 QTc: 471 Interpretive Statements SINUS RHYTHM NONSPECIFIC T-WAVE ABNORMALITY Compared to ECG 02/08/2017 05:14:04 T-wave abnormality now present Electronically Signed On 05-21-2022 10:29:41 CDT by Karel Hardy M.D. [id number]
[2022-05-20] MEDS: lidocaine 2% viscous 15 ML, aluminum-mag hydrox-simethicon 30 ML, sucralfate oral liq 1 GM PO (19:06)
[2022-05-20 19:47] LABS: Troponin(5th) Baseline 6 ng/L (0-10)
[2022-05-23 16:29] LABS: Lyme AB Screen <0.90 index
[2022-05-26 21:29] LABS: RMSF IGG NOT DETECTED; RMSF IGM NOT DETECTED
[2022-05-27 17:15] LABS: E. Chaffeensis AB IGG <1:64; E. Chaffeensis AB IGM <1:20
== END 2022-05-20 20:18 | disposition home or self-care (01) ==
PROVIDERS: Physician Assistant; Emergency Provider Physician Assistant; PCP Nurse Practitioner Family
DX: N30.01 Acute cystitis with hematuria (principal); T37.0X5A Adverse effect of sulfonamides, initial encounter; Z20.822 Contact with and (suspected) exposure to COVID-19; X58.XXXA Exposure to other specified factors, initial encounter
CPT/HCPCS: 71045; 74176; 80053; 81001; 83605; 84484; 85025; 86140; 86618; 86666; 86757; 87040; 87635; 87804; 93005; 96365; 96366; 96375; 99285; J0131; J0696; J1885; J2270; J2360; J2405; J2930; J3490; J7030

== ENCOUNTER → 2022-05-23 10:17 | Outpatient (BNVA) | payer BC, SELFPAY | PROVIDERS: PCP Nurse Practitioner Family; Visit Provider Obstetrics & Gynecology | DX: N92.0 Excessive and frequent menstruation with regular cycle (principal); D25.9 Leiomyoma of uterus, unspecified | CPT/HCPCS: 76830 ==

== ENCOUNTER 2022-06-09 11:46 | Day surgery (SDC) | payer BC, SELFPAY ==
[2022-06-08 12:04] VITALS: BMI 30.9
[2022-06-09] VITALS (8 sets, daily range): BP systolic 127–143; BP diastolic 68–94; PULSE 87–110; RESP 16–20; TEMP 36.2–36.6; O2SAT 94–100
[2022-06-09 12:04] LABS: OR HCG Qualitative Urine Negative (Negative)
--- NOTE | 2022-06-09 12:06 | P.ANESASSM_ITS ---
Pre-Anesthetic Assessment Height/Weight: Height 1.63 m Weight 81.647 kg Temp Pulse Resp BP Pulse Ox O2 Del Method 97.9 F 110 H 16 143/94 98 Room Air 06/09/22 11:59 06/09/22 11:59 06/09/22 11:59 06/09/22 11:59 06/09/22 11:59 06/09/22 11:59 Preop Diagnosis: abnormal uterine bleeing Operation Date: 06/09/22 13:25 Proposed Procedures p Hysteroscopy with Myosure, endometrial sampling 50730, possible endometrial polypectomy 50346, N93.9(Not Applicable) - Fernando Moses MD s Poylpectomy(Not Applicable) - Fernando Moses MD Familial anesthetic complications: NOne Was Beta Adán taken within 24 hours: N/A Was Clonidine taken within 24 hours: N/A Last intake: Intake Last Liquid Date 06/09/22 Last Liquid Time 06:00 Last Solid Date 06/08/22 Last Solid Time 11:00 Social No alcohol and No tobacco Exam alert, oriented x 3, clear to auscultation bilaterally and regular rate & rhythm Airway Mallampati: Class II Dentition: full Neuropsych Anxiety Anesthetic Plan ASA status: 2 Anesthesia: General Risk of > 500 ml blood loss (7ml/kg in children): No Medications/Allergies Home Medications Medication Instructions Recorded Confirmed Last Taken Type norethindrone 1.5 mg-ethinyl 1 tab PO DAILY 04/08/19 06/08/22 06/08/22 History estradiol 30 mcg(21)/iron 75 mg(7) tablet (Microgestin Fe 1.5/30 (28)) ketoconazole 2 % shampoo 1 applic topical Q14D 10/22/19 06/08/22 Unknown History loratadine 10 mg tablet (Claritin) 10 mg PO DAILY 10/22/19 06/08/22 06/08/22 History citalopram 20 mg tablet (Celexa) 30 mg PO DAILY 05/17/22 06/08/22 06/08/22 History Allergies Allergy/AdvReac Type Severity Reaction Status Date / Time codeine Allergy ALGY-Hives Verified 06/09/22 12:06 sulfamethoxazole Allergy ALGY-Rash Verified 06/09/22 12:06 [From Bactrim] tramadol Allergy ALGY-Rash Verified 06/09/22 12:06 trimethoprim [From Bactrim] Allergy ALGY-Rash Verified 06/09/22 12:06 [facility] Anesthesia Medical History (Updated 05/28/22 @ 00:01 by BHARAT Welch) No pertinent past medical history Denies history of asthma, diabetes, hypertension, seizures, DVT/PE/clotting problems Surgical History H/O nephrolithotomy with removal of calculi Done transurethrally S/P cholecystectomy Laparoscopic procedure in her 30s S/P tubal ligation Laparoscopic procedure in 1994 via umbilicus Family History Mother Hypertension Father CAD (coronary artery disease) Other No pertinent family history Social History Smoking and tobacco status: never smoked Alcohol intake: current Alcohol intake frequency: holidays/special occasions only Alcohol type: wine Substance/Drug Use: never 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
[2022-06-09] MEDS: sodium chloride 0.9% 1,000 ML 30 ML IV (12:10)
--- NOTE | 2022-06-09 14:05 | W.PM.OPSFHP ---
Same Day Surgery H&P Indication for Procedure/HPI DATE OF PROCEDURE: June 09, 2022 CHIEF COMPLAINT/INDICATIONFOR SURGICAL PROCEDURE: abnormal uterine bleeding PREOP DIAGNOSIS: abnormal uterine bleeing PLANNED PROCEDURE: Operation Date: 06/09/22 13:25 Proposed Procedures p Hysteroscopy with Myosure, endometrial sampling 53414, possible endometrial polypectomy 12423, N93.9(Not Applicable) - Fernando Moses MD s Poylpectomy(Not Applicable) - Fernando Moses MD Medications/Allergies* Home Medications Medication Instructions Recorded Confirmed Type norethindrone 1.5 mg-ethinyl 1 tab PO DAILY 04/08/19 06/08/22 History estradiol 30 mcg(21)/iron 75 mg(7) tablet (Microgestin Fe 1.5/30 (28)) ketoconazole 2 % shampoo 1 applic topical Q14D 10/22/19 06/08/22 History loratadine 10 mg tablet (Claritin) 10 mg PO DAILY 10/22/19 06/09/22 History citalopram 20 mg tablet (Celexa) 30 mg PO DAILY 05/17/22 06/08/22 History Allergies/Adverse Reactions Allergy/AdvReac Type Severity Reaction Status Date / Time codeine Allergy ALGY-Hives Verified 06/09/22 12:06 sulfamethoxazole Allergy ALGY-Rash Verified 06/09/22 12:06 [From Bactrim] tramadol Allergy ALGY-Rash Verified 06/09/22 12:06 trimethoprim [From Bactrim] Allergy ALGY-Rash Verified 06/09/22 12:06 Current Medications: Generic Name Dose Route Start Last Admin Trade Name Freq PRN Reason Stop Dose Admin Sodium Chloride 1,000 mls @ 30 mls/hr 06/09/22 12:00 06/09/22 12:10 Sodium Chloride 0.9% IV 06/10/22 11:59 30 mls/hr .Q24H CHAUNCEY Administration Pertinent History/Comorbid Conditions* Medical History (Updated 05/28/22 @ 00:01 by BHARAT Welch) No pertinent past medical history Denies history of asthma, diabetes, hypertension, seizures, DVT/PE/clotting problems Surgical History (Updated 04/08/19 @ 16:23 by Marlo Ryan MD) H/O nephrolithotomy with removal of calculi Done transurethrally S/P cholecystectomy Laparoscopic procedure in her 30s S/P tubal ligation Laparoscopic procedure in 1994 via umbilicus Family History (Updated 04/08/19 @ 16:27 by Marlo Ryan MD) No pertinent family history CAD (coronary artery disease) Father Hypertension Mother Social History Smoking and tobacco status: never smoked Alcohol intake: current Alcohol intake frequency: holidays/special occasions only Alcohol type: wine Substance/Drug Use: never 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
--- NOTE | 2022-06-09 17:06 | ANE.PACU2 ---
Inpatient post-anesthesia follow up: Airway intact: Yes Vital signs: Temperature 97.2 F Pulse Rate 91 Respiratory Rate 18 Blood Pressure 132/68 Pulse Oximetry 98 Oxygen Delivery Me thod Room Air Oxygen Flow Rate 6 Fraction of Inspir ed Oxygen Hydration adequate: Yes Nausea and vomiting: No Pain level: 1 Mental status: Baseline
--- NOTE | 2022-06-09 23:10 | PM.OP ---
Operative Report Date of procedure: June 09, 2022 Pre-op diagnosis: Preop Diagnosis abnormal uterine bleeing Post-op diagnosis: same Post-op findings: uterus sounded to 9 cm one 2 cm subendometrial fibroid seen no polyps otherwise normal endometrial cavity Procedure done: hysteroscopy curettage of uterus Specimens removed/disposition: endometrial curettings Surgeon: Fernando Moses M.D. Anesthesia: MAC Estimated blood loss (mL): 5 Complications: none Condition: stable Disposition: PACU Brief History: patient with abnormal uterine bleeding Procedure: Informed consent signed. Patient taken to the operating room. Anesthesia induced. Patient was placed in dorsolithotomy position, prepped and draped for hysteroscopy. A bivalve speculum was placed in the vagina. The anterior lip of the cervix was grasped with a sharp-toothed tenaculum. The cervix was serially dilated with Hegar dilators. . A hysteroscope was placed into the endometrial cavity. The endometrial cavity was seen to be normal except for one 2 cm subendometrial fibroid. There were no polyps. There was small amount of endometrial tissue. The hysteroscope was then removed. Endometrial curettage was done with a sharp curette. Endometrial tissue was sent to pathology. The sharp-toothed tenaculum was removed. There was no bleeding from the endometrial cavity or cervix. The patient was then placed supine and awakened and taken to the PACU. Postop condition: stable EBL: 5 cc Sponge and instruments counts were normal x 2 Complications: none
== END 2022-06-09 16:05 | disposition home or self-care (01) ==
PROVIDERS: Anesthesiology; PCP Nurse Practitioner Family; Visit Provider Obstetrics & Gynecology
PROC: 0UDB8ZZ Extraction of Endometrium, Via Natural or Artificial Opening Endoscopic (ICD-10-PCS; CPT 58558; principal; 2022-06-09 13:15)
DX: D25.9 Leiomyoma of uterus, unspecified (principal); Z88.2 Allergy status to sulfonamides; Z88.5 Allergy status to narcotic agent
CPT/HCPCS: 58563; 81025; 84703; 88305; J1100; J1885; J2250; J2405; J2704; J3010; J7030

== ENCOUNTER 2022-06-14 20:31 | Emergency (ER) | payer BC, SELFPAY ==
[2022-06-14 20:37] VITALS: BP 176/99; PULSE 99; RESP 15; TEMP 36.9; O2SAT 98
[2022-06-14 21:20] LABS: Basophils # 0.1 10^3/uL (0.0-0.1); Basophils % 0.4 %; Eosinophils # 0.7 10^3/uL (0.0-0.8); Eosinophils % 4.7 %; Hemoglobin 10.8 g/dL (11.5-15.3); Lymphocytes # 4.1 10^3/uL (0.8-4.8); Lymphocytes % 29.5 %; Mean Corpuscular HGB Conc 30.9 g/dL (30.0-36.0); Mean Corpuscular Hemoglobin 24.4 pg (28.0-34.0); Mean Corpuscular Volume 79.2 fl (81-99); Mean Platelet Volume 9.4 fL (7.4-10.4); Monocytes # 0.8 10^3/uL (0.2-0.9); Monocytes % 6.1 %; Neutrophils % 58.9 %; Nucleated Red Blood Cells % 0 %; Platelet Count 468 10^3/cmm (130-400); Red Blood Count 4.42 10^6/uL (4.1-5.3); Red Cell Distribution Width 15.2 % (12.1-15.1); White Blood Count 13.8 10^3/uL (4.0-10.0)
--- NOTE | 2022-06-14 21:24 | CTR_ITS ---
PROCEDURE INFORMATION: Exam: CT Abdomen And Pelvis With Contrast Exam date and time: 06/14/2022 9:51 PM Age: 47 years old Clinical indication: Abdominal pain; Prior surgery; Surgery date: 6+ months; Surgery type: Gb nephrectomy; Additional info: Abd pain/vag bleeding TECHNIQUE: Imaging protocol: Computed tomography of the abdomen and pelvis with contrast. Radiation optimization: All CT scans at this facility use at least one of these dose optimization techniques: automated exposure control; mA and/or kV adjustment per patient size (includes targeted exams where dose is matched to clinical indication); or iterative reconstruction. Contrast material: OMNI 350; Contrast volume: 70 ml; Contrast route: INTRAVENOUS (IV); REPORTING DATA: Count of CT and Cardiac NM exams in prior 12 months: This patient has received [address] and 0 known cardiac nuclear medicine studies in the 12 months prior to the current study. COMPARISON: CT kidney stone [id number] 05/20/2022 4:37 PM RADIATION DOSE METRICS: Total DLP (mGy-cm): 758.24 FINDINGS: Liver: Hepatic steatosis. Gallbladder and bile ducts: Cholecystectomy. Pancreas: Normal. No ductal dilation. Spleen: Normal. No splenomegaly. Adrenal glands: Normal. No mass. Kidneys and ureters: Normal. No hydronephrosis. Stomach and bowel: Constipation. Appendix: No evidence of appendicitis. Intraperitoneal space: Unremarkable. No free air. No significant fluid collection. Vasculature: Unremarkable. No abdominal aortic aneurysm. Lymph nodes: Unremarkable. No enlarged lymph nodes. Urinary bladder: Unremarkable as visualized. Reproductive: Fibroid uterus. Bones/joints: Unremarkable. No acute fracture. Soft tissues: Unremarkable. CT/CT abdomen pelvis w con* [id number] IMPRESSION: 1. Negative for acute inflammatory process in the abdomen or pelvis. 2. Hepatic steatosis. 3. Cholecystectomy. 4. Constipation. 5. Fibroid uterus.
--- NOTE | 2022-06-14 21:25 | W.ED.FEMALGU ---
HPI - Female Genitourinary General: Chief complaint: Vaginal Bleeding Stated complaint: vaginal bleeding/cramping Time Seen by Provider: 06/14/22 21:12 Source: patient Mode of arrival: ambulatory Limitations: no limitations History of Present Illness: 47-year-old female who had a hysteroscope the last week due to her uterine fibroids she states that roughly an hour ago started having some vaginal bleeding she states it is like her normal menstruation but she is not supposed to have her menstrual period yet. She denies any large amounts of bleeding she is having some abdominal cramping she rates a 3 out of 10 denies any vomiting diarrhea. She denies any fevers. Associated symptoms: Reports abdominal pain; Deny headache(s) or nausea Review of Systems Const: Denies: fever(s), chills or body aches Eyes: Denies: eye discomfort ENMT: Denies: throat pain or dental pain Card: Denies: chest pain Resp: Denies: dyspnea GI: Reports: abdominal pain; Denies: nausea, vomiting or diarrhea : Reports: vaginal bleeding; Denies: dysuria Musc: Denies: neck pain or back pain Skin/Breast: Denies: rash Neuro: Denies: headache(s) PFSH ED PFSH: Medical History (Updated 06/14/22 @ 22:49 by Michelle Patterson MD) No pertinent past medical history Denies history of asthma, diabetes, hypertension, seizures, DVT/PE/clotting problems Surgical History H/O nephrolithotomy with removal of calculi Done transurethrally S/P cholecystectomy Laparoscopic procedure in her 30s S/P tubal ligation Laparoscopic procedure in 1994 via umbilicus Family History Mother Hypertension Father CAD (coronary artery disease) Other No pertinent family history Social History Smoking and tobacco status: never smoked Alcohol intake: current Alcohol intake frequency: holidays/special occasions only Alcohol type: wine Substance/Drug Use: never 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 [employer] Additional social history: Tobacco use: Denies Alcohol use: Social alcohol use once or twice a month Drug use: Denies 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 [employer] Physical Exam Const: COMMON NORMALS: no acute distress and patient oriented x3; negative for healthy appearing HENMT: COMMON NORMALS: normocephalic and atraumatic HEAD & SCALP: normocephalic and atraumatic Eye: COMMON NORMALS: conjunctivae normal CONJUNCTIVA: Yes conjunctivae normal Neck/C-Spine: COMMON NORMALS: full ROM and supple Chest: COMMONS NORMALS: normal inspection of the chest and normal palpation of entire chest wall Resp: COMMON NORMALS: normal respiratory effort, No retractions, No use of accessory muscles and clear to auscultation bilaterally AUSCULTATION: clear to auscultation bilaterally Cardio: COMMON NORMALS: regular rate, regular rhythm and No murmurs present (Cardio) RATE: regular rate RHYTHM: regular rhythm GI: COMMON NORMALS: Normal to inspection, nondistended, normoactive bowel sounds present, Soft to palpation, non-tender and no masses PALPATION: Yes Soft to palpation Extremity: COMMON NORMALS: normal to inspection and full ROM Neuro: COMMON NORMALS: patient oriented x3, moves all extremities and no focal motor deficits Psych: COMMON NORMALS: mental status grossly normal, Normal thought process present and cooperative THOUGHT PROCESS: Normal thought process present Skin: COMMON NORMALS: no rashes or lesions noted and no wounds GENERAL SKIN EXAM: no rashes or lesions noted Course Vital Signs: Vital signs: Vital Signs Temperature 98.4 F 06/14/22 20:37 Pulse Rate 99 06/14/22 20:37 Respiratory Rate 15 06/14/22 20:37 Blood Pressure 176/99 06/14/22 20:37 Pulse Oximetry 98 06/14/22 20:37 Oxygen Delivery Me thod Room Air 06/14/22 20:37 MDM - Female Medical Decision Making Patient presents here with abdominal pain on some vaginal bleeding her exam here is benign CT shows no acute findings likely has some bleeding from her fibroids no heavy bleeding hemoglobin is normal she is to follow-up with her SPRAYER MACHINE and return if worsening. She understands agrees to plan. Medical Records I reviewed the patient's medical records. Lab Data I reviewed the patient's lab results. 06/14/22 21:00 06/14/22 21:00 Radiology Impressions Abdomen/Pelvis CT 06/14/22 21:24 IMPRESSION: 1. Negative for acute inflammatory process in the abdomen or pelvis. 2. Hepatic steatosis. 3. Cholecystectomy. 4. Constipation. 5. Fibroid uterus. Laboratory Results WBC 13.8 10^3/uL (4.0-10.0) H 06/14/22 21:00 RBC 4.42 10^6/uL (4.1-5.3) 06/14/22 21:00 Hgb 10.8 g/dL (11.5-15.3) L 06/14/22 21:00 Hct 35.0 % (37.0-47.0) L 06/14/22 21:00 MCV 79.2 fl (81-99) L 06/14/22 21:00 MCH 24.4 pg (28.0-34.0) L 06/14/22 21:00 MCHC 30.9 g/dL (30.0-36.0) 06/14/22 21:00 RDW 15.2 % (12.1-15.1) H 06/14/22 21:00 Plt Count 468 10^3/cmm (130-400) H 06/14/22 21:00 MPV 9.4 fL (7.4-10.4) 06/14/22 21:00 Neut % (Auto) 58.9 % 06/14/22 21:00 Lymph % (Auto) 29.5 % 06/14/22 21:00 [place] % (Auto) 6.1 % 06/14/22 21:00 Eos % (Auto) 4.7 % 06/14/22 21:00 Baso % (Auto) 0.4 % 06/14/22 21:00 Neut # (Auto) 8.10 10^3/uL (1.8-7.7) H 06/14/22 21:00 Lymph # (Auto) 4.1 10^3/uL (0.8-4.8) 06/14/22 21:00 [place] # (Auto) 0.8 10^3/uL (0.2-0.9) 06/14/22 21:00 Eos # (Auto) 0.7 10^3/uL (0.0-0.8) 06/14/22 21:00 Baso # (Auto) 0.1 10^3/uL (0.0-0.1) 06/14/22 21:00 Nucleated RBC % (auto) 0 % 06/14/22 21:00 Nucleated RBCs # 0.0 /100WBC 06/14/22 21:00 Sodium 139 mmol/L (136-145) 06/14/22 21:00 Potassium 4.3 mmol/L (3.5-5.1) 06/14/22 21:00 Chloride 102 mmol/L (98-107) 06/14/22 21:00 Carbon Dioxide 27 mmol/L (22-29) 06/14/22 21:00 Anion Gap 14.3 (5-19) 06/14/22 21:00 BUN 10 mg/dL (6-20) 06/14/22 21:00 Creatinine 0.7 mg/dL (0.5-0.9) 06/14/22 21:00 GFR Calculation 88.9 mL/min (90-130) L 06/14/22 21:00 Glucose 98 mg/dL (65-115) 06/14/22 21:00 Calculated Osmolality 287 mOsm/kg (285-295) 06/14/22 21:00 Calcium 9.3 mg/dL (8.5-10.5) 06/14/22 21:00 Total Bilirubin 0.2 mg/dL (0.15-1.2) 06/14/22 21:00 AST 10 U/L (0-32) 06/14/22 21:00 ALT 7 U/L (0-33) 06/14/22 21:00 Alkaline Phosphatase 122 U/L (35-105) H 06/14/22 21:00 Total Protein 7.3 g/dL (6.6-8.7) 06/14/22 21:00 Albumin 3.9 g/dL (3.5-5.2) 06/14/22 21:00 Globulin 3.4 g/dL (1.3-4.6) 06/14/22 21:00 HCG, Qual Negative (Negative) 06/14/22 21:00 Discharge Plan Discharge Patient Disposition: Home Clinical Impression: Abnormal uterine bleeding Condition: Stable Prescriptions: No Action norethindrone-e.estradiol-iron [Microgestin Fe 1.5/30 (28)] 1.5 mg-30 mcg (21)/75 mg (7) tablet 1 tab PO DAILY loratadine [Claritin] 10 mg tablet 10 mg PO DAILY ketoconazole 2 % shampoo 1 applic TOPICAL Q14D citalopram [Celexa] 20 mg tablet 30 mg PO DAILY Discharge Orders: Discharge ED (Routine); Ordered 06/14/22 Ordered By: Michelle Patterson Referrals: Walsh,Estrellita INDUSTRIAL ELECTRICAL TECHNICIAN [Primary Care Provider] - 1-3 days Discharge Diet: Advance as tolerated Discharge Activity: Resume usual activity Patient Instructions: Abnormal (Dysfunctional) Uterine Bleeding (ED) Coding Level of Care Code ED Certified Nurse Midwife for Julián Angel
[2022-06-14 21:31] LABS: HCG, Serum Qual Negative (Negative)
[2022-06-14 21:41] LABS: Alanine Aminotransferase 7 U/L (0-33); Albumin Level 3.9 g/dL (3.5-5.2); Alkaline Phosphatase 122 U/L (35-105); Anion Gap 14.3 (5-19); Aspartate Amino Transferase 10 U/L (0-32); Blood Urea Nitrogen 10 mg/dL (6-20); Calcium 9.3 mg/dL (8.5-10.5); Carbon Dioxide 27 mmol/L (22-29); Chloride 102 mmol/L (98-107); Globulin 3.4 g/dL (1.3-4.6); Glomerular Filtration Rate 88.9 mL/min (90-130); Glucose 98 mg/dL (65-115); Osmolality Calculated 287 mOsm/kg (285-295); Potassium 4.3 mmol/L (3.5-5.1); Sodium 139 mmol/L (136-145); Total Bilirubin 0.2 mg/dL (0.15-1.2); Total Protein 7.3 g/dL (6.6-8.7)
[2022-06-14] MEDS: ketorolac 30 mg/mL INJ 15 MG IVP (21:43)
[2022-06-14 21:48] VITALS: BP 156/95; PULSE 85; O2SAT 98
[2022-06-14] MEDS: iohexol 350 mg/mL 500 mL Btl (per mL) IV (21:55)
[2022-06-14 22:00] VITALS: BP 155/87; PULSE 93; O2SAT 96
[2022-06-14 22:30] VITALS: BP 163/99; PULSE 91; O2SAT 96
[2022-06-14 23:03] VITALS: BP 141/82; PULSE 89; RESP 16; O2SAT 97
== END 2022-06-14 23:05 | disposition home or self-care (01) ==
PROVIDERS: Emergency Provider Emergency Medicine; PCP Nurse Practitioner Family
DX: N93.9 Abnormal uterine and vaginal bleeding, unspecified (principal); K59.00 Constipation, unspecified; D25.9 Leiomyoma of uterus, unspecified
CPT/HCPCS: 36415; 74177; 80053; 84703; 85025; 96374; 99285; J1885; Q9967

== ENCOUNTER 2022-07-14 16:13 | Inpatient (IN) | payer BC, SELFPAY ==
--- NOTE | 2022-07-13 19:22 | PM.HP ---
Providers/Chief Complaint Admitting Physician: Fernando Moses MD Primary Care Provider: COMFORT Lucas Chief Complaint: N93.9, D25.0, D25.1, D25.2 History of Present Illness Sheeba Zelaya is a 47 year old history of bilateral tubal ligation 1994 scheduled for hysterectomy for treatment of fibroids and menorrhagia Medications/Allergies Home Medications Medication Instructions Recorded Confirmed Last Taken Type loratadine 10 mg tablet (Claritin) 10 mg PO DAILY 10/22/19 07/13/22 07/13/22 History citalopram 20 mg tablet (Celexa) 30 mg PO DAILY 05/17/22 07/13/22 07/13/22 History docusate potassium 100 mg capsule 100 mg PO DAILY 07/13/22 07/13/22 07/13/22 History Allergies Allergy/AdvReac Type Severity Reaction Status Date / Time codeine Allergy ALGY-Hives Verified 07/13/22 16:14 sulfamethoxazole Allergy ALGY-Rash Verified 07/13/22 16:14 [From Bactrim] tramadol Allergy ALGY-Rash Verified 07/13/22 16:14 trimethoprim [From Bactrim] Allergy ALGY-Rash Verified 07/13/22 16:14 PFSH Acute PFSH: Medical History (Updated 06/19/22 @ 20:26 by Fernando Moses MD) No pertinent past medical history Denies history of asthma, diabetes, hypertension, seizures, DVT/PE/clotting problems Surgical History H/O nephrolithotomy with removal of calculi Done transurethrally S/P cholecystectomy Laparoscopic procedure in her 30s S/P tubal ligation Laparoscopic procedure in 1994 via umbilicus Family History Mother Hypertension Father CAD (coronary artery disease) Other No pertinent family history Female Reproductive History: Date of last menstrual period: 07/04/22 Vitals/I&O/Wt Weight last 48 hrs Weight 180 lb Physical Exam Narrative: HEENT: normal Lungs: clear Cor: RRR no m Abd: soft, nontender A&P Assessment and plan (1) Abnormal uterine bleeding: (2) Uterine fibroid: multiple uterine fibroids s/p hysteroscopy, curettage of uterus patient wants hysterectomy does not want trial of mirena IUD, DMPA, endometrial ablation plan total laparoscopic hysterectomy, possible open hysterectomy; cystoscopy Procedures and risks explained to patient, including risks of infection, bleeding, injury to internal organs, anesthesia, blood transfusions. patient understands and wants to proceed Qualifiers: Uterine leiomyoma location: intramural, submucous, and subserous Qualified Code(s): D25.1 - Intramural leiomyoma of uterus; D25.0 - Submucous leiomyoma of uterus; D25.2 - Subserosal leiomyoma of uterus Attestations Medical Necessity Statement*: patient with uterine fibroids and menorrhagia, scheduled for hysterectomy Coding Level of Care Code Acute Code for Chg Fwd Diagnoses Abnormal uterine bleeding N93.9 Uterine fibroid D25.1; D25.0; D25.2 Uterine leiomyoma location: intramural, submucous, and subserous Time Spent (min) 30
[2022-07-14] VITALS (23 sets, daily range): BP systolic 138–169; BP diastolic 61–97; PULSE 73–94; RESP 12–23; TEMP 36.1–36.7; O2SAT 90–100
[2022-07-14 12:15] LABS: OR HCG Qualitative Urine Negative (Negative)
--- NOTE | 2022-07-14 12:32 | W.PM.OPSUD ---
Surgery/Procedure H&P Update DATE OF PROCEDURE: July 14, 2022 DATE H&P PERFORMED: 06/16/22 H&P UPDATE INFORMATION: I have reviewed H&P completed within last 30 days, I have examined patient prior to procedure and No changes to prior documentation PREOP DIAGNOSIS: abnormal uterine bleeding PRIMARY INDICATION FOR PROCEDURE: uterine fibroids, menorrhagia PLANNED PROCEDURE: Operation Date: 07/14/22 13:20 Proposed Procedures p Total Laparoscopic Hysterectomy(Not Applicable) - Fernando Moses MD s [Total laparoscopic hysterectomy 10045, Possible total abdominal hysterectomy 47796], N93.9, D25.0, D25.1, D25.2(Not Applicable) - Fernando Moses MD
--- NOTE | 2022-07-14 12:39 | P.ANESASSM_ITS ---
Pre-Anesthetic Assessment Height/Weight: Height 1.63 m Weight 81.647 kg Temp Pulse Resp BP Pulse Ox O2 Del Method 97.5 F L 74 16 169/97 98 Room Air 07/14/22 12:05 07/14/22 12:05 07/14/22 12:05 07/14/22 12:05 07/14/22 12:05 07/14/22 12:09 Preop Diagnosis: abnormal uterine bleeding Operation Date: 07/14/22 13:20 Proposed Procedures p Total Laparoscopic Hysterectomy(Not Applicable) - Fernando Moses MD s [Total laparoscopic hysterectomy 64751, Possible total abdominal hysterectomy 66749], N93.9, D25.0, D25.1, D25.2(Not Applicable) - Fernando Moses MD Familial anesthetic complications: None Last intake: Intake Last Liquid Date 07/13/22 Last Liquid Time 22:00 Last Solid Date 07/13/22 Last Solid Time 22:00 Social No alcohol and No tobacco Exam alert, oriented x 3, clear to auscultation bilaterally and regular rate & rhythm Airway Mallampati: Class II Dentition: full Neuropsych Anxiety Anesthetic Plan ASA status: 2 Anesthesia: General Risk of > 500 ml blood loss (7ml/kg in children): No Medications/Allergies Home Medications Medication Instructions Recorded Confirmed Last Taken Type loratadine 10 mg tablet (Claritin) 10 mg PO DAILY 10/22/19 07/13/22 07/13/22 History citalopram 20 mg tablet (Celexa) 30 mg PO DAILY 05/17/22 07/13/22 07/14/22 07:00 History docusate potassium 100 mg capsule 100 mg PO DAILY 07/13/22 07/13/22 07/13/22 History Allergies Allergy/AdvReac Type Severity Reaction Status Date / Time codeine Allergy ALGY-Hives Verified 07/13/22 16:14 sulfamethoxazole Allergy ALGY-Rash Verified 07/13/22 16:14 [From Bactrim] tramadol Allergy ALGY-Rash Verified 07/13/22 16:14 trimethoprim [From Bactrim] Allergy ALGY-Rash Verified 07/13/22 16:14 [facility] Anesthesia Medical History (Updated 06/19/22 @ 20:26 by Fernando Moses MD) No pertinent past medical history Denies history of asthma, diabetes, hypertension, seizures, DVT/PE/clotting problems Surgical History H/O nephrolithotomy with removal of calculi Done transurethrally S/P cholecystectomy Laparoscopic procedure in her 30s S/P tubal ligation Laparoscopic procedure in 1994 via umbilicus Family History Mother Hypertension Father CAD (coronary artery disease) Other No pertinent family history Female Reproductive History Date of last menstrual period: 07/04/22 Data Anesthesia Cardiac Studies: No Data to Display
[2022-07-14] MEDS: scopolamine 1.5 Patch 1 PATCH TRANSDERMA (12:51)
[2022-07-14] MEDS: sodium chloride 0.9% 1,000 ML 30 ML IV (12:51)
[2022-07-14] MEDS: ceFAZolin 2,000 MG in sodium chloride 0.9% (plus) 50 ML 100 MG IV (13:01)
--- NOTE | 2022-07-14 15:29 | SUR.PHASEI ---
1529 oral airway removed at this time. spo2 96% on RA
[2022-07-14] MEDS: fentaNYL 50 mcg/mL INJ 2mL IVP ×2 (15:39→15:48)
[2022-07-14] MEDS: HYDROmorphone 1 mg/mL INJ 1 mL 0.5 MG IVP (15:59)
[2022-07-14] MEDS: dextrose 5%-lactated ringers 1,000 ML 125 ML IV (16:28)
[2022-07-14] MEDS: ketorolac 30 mg/mL INJ IVP ×2 (16:30→22:32)
--- NOTE | 2022-07-14 16:50 | ANE.PACU2 ---
Inpatient post-anesthesia follow up: Airway intact: Yes Vital signs: Temperature 97.9 F Pulse Rate 82 Respiratory Rate 17 Blood Pressure 154/82 Pulse Oximetry 97 Oxygen Delivery Me thod Room Air Oxygen Flow Rate 2 Fraction of Inspir ed Oxygen Hydration adequate: Yes Nausea and vomiting: No Pain level: 1 Mental status: Baseline
[2022-07-14] MEDS: docusate sodium 100 mg Capsule PO (17:27)
[2022-07-14] MEDS: HYDROcodone-acetaminophen 5-325 mg Tablet PO (17:27)
--- NOTE | 2022-07-14 20:38 | P.OP_ITS ---
Operative Report Date of procedure: July 14, 2022 Pre-op diagnosis: Preop Diagnosis abnormal uterine bleeding; uterine fibroids Post-op diagnosis: same Post-op findings: uterus markedly enlarged with fibroids, approximately 20-wk size Fallopian tubes showed evidence of previous salpingectomy Normal ovaries Normal and intact bladder Procedure done: laparoscopy Total abdominal hysterectomy Specimens removed/disposition: uterus Surgeon: Fernando Moses MD Glass Toughening Operator: Casey Silveira MD Estimated blood loss (mL): 50 Complications: none Condition: stable Disposition: PACU Brief History: patient with uterine fibroids and menorrhagia Procedure: Informed consent obtained. The patient was taken to the operating room and placed supine on the table. General endotracheal anesthesia was induced. The patient was placed in dorsolithotomy position. The abdomen and perineum were prepped and draped in the usual sterile fashion. A speculum was placed in the vagina. A popchipsare uterine manipulator was placed. A hess catheter was placed which drained clear urine. A subumbilical skin incision was made. A Veress needle was placed into the peritoneal cavity. After adequate pneumoperitoneum was achieved, the Veress needle was removed. A laparoscope was inserted via a 5 mm trocar with sheath. The pelvis was examined. The uterus was noted to be enlarged to approximately 20-week size with fibroids. It was decided to proceed with open abdominal hysterectomy. The laparoscope was removed as was the 5 mm sheath. A pfannenstiel incision was made and carried down through skin and subcutaneous tissue and fascia. The fascia was sharply incised. The rectus muscles were and the abdomen was entered bluntly in the midline. The pelvic contents were visualized and examined. An Johnny-O retractor was placed. The bowels were packed out of the way. The Ligasure device was used throughout for vessel sealing and cutting. The hysterectomy was begun by dividing and ligating the round ligaments bilaterally. The infundibulopelvic ligaments were divided and skeletonized bilaterally. The ovaries were preserved by dividing the uterus from the uteroovarian ligaments. The vesicouterine peritoneal fold was incised in a transverse curvilinear fashion and sharply dissected downward mobilizing the bladder off the lower uterine segment. The uterine vessels were skeletonized and bilaterally divided and ligated. The procedure was carried down on both sides of the uterus until the cardinal uterosacral ligament was reached. The cervix was then incised. The vaginal cuff was identified and the mucosa was from the cervix. In this fashion, the uterus was removed leaving the vaginal cuff. The vaginal cuff was identified and the mucosa was sewn with O-Vicryl. The pelvis was inspected and irrigated. There was no bleeding. The abdominal packs were removed as was the retractor. The fascia was then closed with a continuous stitch of O-Vicryl. The subcutaneous tissue was irrigated and inspected for hemostasis. The skin was then reapproximated using Insorb absorbable subcuticular skin ronaldo. The patient was then placed supine, extubated, and taken to the recovery room. Postoperative condition: stable EBL: 50 cc Complications: none Sponge, needle, instruments counts were correct x two.
--- NOTE | 2022-07-14 21:30 | PC.NURSE ---
THIS RN AMBULATED WITH PT 2 LAPS AROUND UNIT. PT TOLERATED WELL WITH NO COMPLAINTS. PT CONTINUED TO WALK INDEPENDENTLY AND DENIED DIZZINESS OR NAUSEA.
[2022-07-14] MEDS: enoxaparin 40 mg/0.4 mL Syringe SUBCUT (22:32)
[2022-07-15 04:00] VITALS: BP 168/92; PULSE 86; RESP 16; TEMP 36.9; O2SAT 94
[2022-07-15] MEDS: ketorolac 30 mg/mL INJ IVP ×2 (04:20→09:08)
[2022-07-15] MEDS: HYDROcodone-acetaminophen 5-325 mg Tablet PO ×2 (04:29→11:21)
[2022-07-15 05:35] LABS: Hematocrit 30.3 % (37.0-47.0); Hemoglobin 9.3 g/dL (11.5-15.3); Mean Corpuscular HGB Conc 30.7 g/dL (30.0-36.0); Mean Corpuscular Hemoglobin 24.2 pg (28.0-34.0); Mean Corpuscular Volume 78.7 fl (81-99); Mean Platelet Volume 9.8 fL (7.4-10.4); Platelet Count 359 10^3/cmm (130-400); Red Blood Count 3.85 10^6/uL (4.1-5.3); Red Cell Distribution Width 15.8 % (12.1-15.1); White Blood Count 10.7 10^3/uL (4.0-10.0)
[2022-07-15] MEDS: docusate sodium 100 mg Capsule PO (08:40)
[2022-07-15 09:12] VITALS: BP 154/82; PULSE 82; RESP 17; TEMP 36.6; O2SAT 97
[2022-07-15] MEDS: simethicone 80 mg Chew PO (10:26)
[2022-07-15 11:23] VITALS: BP 158/79; PULSE 75; RESP 17; TEMP 36.6; O2SAT 99
[2022-07-15 11:27] VITALS: BP 158/79; PULSE 75; RESP 17; TEMP 36.6; O2SAT 99
--- NOTE | 2022-07-29 11:04 | PM.OBGYDC ---
Discharge Providers CUSTOMER TECHNICAL SERVICES MANAGER Date of Admission: 07/14/22 16:13 Date of Discharge: 07/15/22 Attending Provider at Admission: Fernando Moses MD Attending Provider at Discharge: Fernando Moses MD Primary CUSTOMER TECHNICAL SERVICES MANAGER: Fernando Moses MD Primary Care Provider: COMFORT Lucas Diagnoses at Discharge Discharge Diagnosis (1) Abnormal uterine bleeding: Details from hospital stay: patient underwent total abdominal hysterectomy without any complications. Patient had no immediate postoperative complications and was discharged home on postoperative day #1 in good condition. Status: Resolved (2) Uterine fibroid: Status: Resolved Qualifiers: Uterine leiomyoma location: intramural, submucous, and subserous Qualified Code(s): D25.1 - Intramural leiomyoma of uterus; D25.0 - Submucous leiomyoma of uterus; D25.2 - Subserosal leiomyoma of uterus Permanent problem details: Diagnosed in 2019 at time of routine pelvic [id number] uterus Reason for Visit Reason for Visit: N93.9, D25.0, D25.1, D25.2 Physical Exam Urinary Catheter Management: Stack: Cath Placed During This Visit: yes, but has since been removed by the nurse Reason for Continuing Indwelling Catheter: Decision to DC Catheter Urinary Catheter Date of Insertion: 07/14/22 Urinary Catheter Time of Insertion: 13:15 Date Urinary Catheter Removed: 07/15/22 Time Urinary Catheter Discontinued: 05:17 History History History 2 Term 2 0 Miscarriages/Ectopic 0 Living Children 2 Discharge Data Studies Completed and Pending Completed Studies During Hospitalization Category Date Time Status Pathology: Surgical [PTH] Routine Pth 07/14/22 15:01 Completed Laboratory Results WBC 10.7 10^3/uL (4.0-10.0) H 07/15/22 05:10 RBC 3.85 10^6/uL (4.1-5.3) L 07/15/22 05:10 Hgb 9.3 g/dL (11.5-15.3) L 07/15/22 05:10 Hct 30.3 % (37.0-47.0) L 07/15/22 05:10 MCV 78.7 fl (81-99) L 07/15/22 05:10 MCH 24.2 pg (28.0-34.0) L 07/15/22 05:10 MCHC 30.7 g/dL (30.0-36.0) 07/15/22 05:10 RDW 15.8 % (12.1-15.1) H 07/15/22 05:10 Plt Count 359 10^3/cmm (130-400) 07/15/22 05:10 MPV 9.8 fL (7.4-10.4) 07/15/22 05:10 Urine HCG, Qual Negative (Negative) 07/14/22 11:51 Blood Type A Positive 07/14/22 12:35 Rho(D) Type Positive 07/14/22 12:35 Antibody Screen Negative 07/14/22 12:35 Procedures Performed Total abdominal hysterectomy Vitals Last Vital Signs Temp 97.8 F 07/15/22 11:27 Pulse 75 07/15/22 11:27 Resp 17 07/15/22 11:27 BP 158/79 07/15/22 11:27 Pulse Ox 99 07/15/22 11:27 O2 Del Method Room Air 07/15/22 11:23 O2 Flow Rate 2 07/14/22 16:15 Discharge Plan Discharge Patient Disposition: Home Condition: Stable Prescriptions: New Percocet 7.5-325 mg tablet 1 tab PO Q8H PRN (Reason: pain) Qty: 30 0RF Vesicare 5 mg tablet 5 mg PO DAILY Qty: 30 2RF Continued loratadine [Claritin] 10 mg tablet 10 mg PO DAILY citalopram [Celexa] 20 mg tablet 30 mg PO DAILY docusate potassium 100 mg Capsule 100 mg PO DAILY Discharge Orders: Discharge Order (Routine); Ordered 07/15/22 Ordered By: Fernando Moses Referrals: Fernando Moses MD [Physician] - 07/20/22 10:15 am Discharge Diet: Usual diet Discharge Activity: Increase activity as tolerated Patient Instructions: Oxycodone/Acetaminophen (By mouth) (Percocet, Roxicet), Solifenacin (By mouth) (Vesicare), Hysterectomy (GEN), OB Discharge Report, OB Food/Drug Interaction Guide, Opioid Safety Activity Restrictions/Additional Instructions: call Dr. Moses at if questions or problems Discharge Attestations CUSTOMER TECHNICAL SERVICES MANAGER Time Spent in Discharge Care*: less than 30 min Status at Discharge: Overall status at discharge: patient is progressing back to baseline Coding Level of Care Code Acute Code for Chg Fwd Diagnoses Abnormal uterine bleeding N93.9 Uterine fibroid D25.1; D25.0; D25.2 Uterine leiomyoma location: intramural, submucous, and subserous Time Spent (min) 20
== END 2022-07-15 11:27 | disposition home or self-care (01) | DRG 743 ==
LOC: OBGYN 16:13
PROVIDERS: Admitting Provider Obstetrics & Gynecology; PCP Nurse Practitioner Family; Visit Provider Obstetrics & Gynecology
PROC: 0UT94ZZ Resection of Uterus, Percutaneous Endoscopic Approach (ICD-10-PCS; principal; 2022-07-14 13:10)
PROC: 0UT90ZZ Resection of Uterus, Open Approach (ICD-10-PCS; CPT 58150; 2022-07-14 13:10)
DX: D25.9 Leiomyoma of uterus, unspecified (principal); N93.9 Abnormal uterine and vaginal bleeding, unspecified; Z90.79 Acquired absence of other genital organ(s); F41.9 Anxiety disorder, unspecified
CPT/HCPCS: 36415; 81025; 84703; 85027; 86850; 86900; 88307; 96372; 96374; 96376; J0690; J1100; J1170; J1650; J1885; J2405; J2704; J2710; J3010; J3490; J7030; J7121; Q9968

== ENCOUNTER → 2022-08-17 08:55 | Outpatient (BNVA) | payer BC, SELFPAY | PROVIDERS: PCP Nurse Practitioner Family; Visit Provider Obstetrics & Gynecology | DX: N93.9 Abnormal uterine and vaginal bleeding, unspecified (principal) | CPT/HCPCS: 81000 ==

== ENCOUNTER → 2022-10-11 15:24 | Outpatient (BNVA) | payer BC, SELFPAY | PROVIDERS: PCP Nurse Practitioner Family; Visit Provider Nurse Practitioner Women's Health | DX: R35.0 Frequency of micturition (principal); R31.9 Hematuria, unspecified; B37.9 Candidiasis, unspecified | CPT/HCPCS: 84315; 87086 ==

== ENCOUNTER → 2022-10-14 15:15 | Outpatient (BNVA) | payer BC, SELFPAY | PROVIDERS: PCP Nurse Practitioner Family; Visit Provider Obstetrics & Gynecology | DX: R82.90 Unspecified abnormal findings in urine (principal) | CPT/HCPCS: 87086 ==

== ENCOUNTER 2023-04-15 22:56 | Emergency (ER) | payer BC, SELFPAY ==
[2023-04-15 23:01] VITALS: BP 189/99; PULSE 82; RESP 18; TEMP 36.3; O2SAT 98
--- NOTE | 2023-04-15 23:14 | CTR_ITS ---
PROCEDURE INFORMATION: Exam: CT Abdomen And Pelvis With Contrast Exam date and time: 04/15/2023 11:25 PM Age: 48 years old Clinical indication: Abdominal pain; Localized; Lower; Prior surgery; Surgery date: 6+ months; Surgery type: Gb. Hysterectomy. Patient HX: C/O pelvic pain TECHNIQUE: Imaging protocol: Computed tomography of the abdomen and pelvis with contrast. Radiation optimization: All CT scans at this facility use at least one of these dose optimization techniques: automated exposure control; mA and/or kV adjustment per patient size (includes targeted exams where dose is matched to clinical indication); or iterative reconstruction. Contrast material: OMNI 350; Contrast volume: 100 ml; Contrast route: INTRAVENOUS (IV); COMPARISON: CT abdomen pelvis w con* [id number] 06/14/2022 9:51 PM RADIATION DOSE METRICS: Total DLP (mGy-cm): 790.41 FINDINGS: Liver: Normal. No mass. Gallbladder and bile ducts: Cholecystectomy clips. No biliary dilatation. Pancreas: Normal. No ductal dilation. Spleen: Normal. No splenomegaly. Adrenal glands: Normal. No mass. Kidneys and ureters: Stable subcentimeter hypodensity in the upper pole of the right kidney compared to 06/14/2022, likely due to subcentimeter cyst, too small to definitively characterize. Stomach and bowel: Unremarkable. No obstruction. No mucosal thickening. Appendix: Appendix is unremarkable. Intraperitoneal space: Unremarkable. No free air. No significant fluid collection. Vasculature: Unremarkable. No abdominal aortic aneurysm. Lymph nodes: Unremarkable. No enlarged lymph nodes. Urinary bladder: Amputee bladder Reproductive: Uterus is absent. Incidentally noted small left ovarian cyst measuring 1.6 cm, no further assessment is recommended based on ACR guidelines. Bones/joints: Unremarkable. No acute fracture. Soft tissues: Unremarkable. CT/CT abdomen pelvis w con* [id number] IMPRESSION: No clear-cut acute abdominopelvic abnormality.
--- NOTE | 2023-04-15 23:14 | W.ED.FEMALGU ---
HPI - Female Genitourinary General: Chief complaint: Urogenital-Female Stated complaint: Vaginal Pain Time Seen by Provider: 04/15/23 23:11 Source: patient Mode of arrival: ambulatory Limitations: no limitations History of Present Illness: 48-year-old female states she had a hysterectomy last June she states that since then she has had chronic pelvic pain. She states she is had pain daily the pelvic region states she is feels like everything is falling out of her vagina. States she is also had painful urination along with frequent urination she had prescription for Macrobid and she filled 1 and started 4 days ago states she still severe pain. Rates the pain a 7 out of 10 denies any worse improved factors denies any vaginal bleeding. Associated symptoms: Deny abdominal pain, headache(s) or nausea Review of Systems Const: Denies: fever(s), chills, body aches or change in appetite ENMT: Denies: throat pain or dental pain Card: Denies: chest pain Resp: Denies: dyspnea GI: Denies: abdominal pain, nausea, vomiting or diarrhea : Reports: urinary frequency Musc: Denies: neck pain or back pain Skin/Breast: Denies: rash Neuro: Denies: headache(s) PFSH ED PFSH: Medical History (Updated 04/16/23 @ 00:05 by Michelle Patterson MD) No pertinent past medical history Denies history of asthma, diabetes, hypertension, seizures, DVT/PE/clotting problems Surgical History H/O nephrolithotomy with removal of calculi Done transurethrally S/P cholecystectomy Laparoscopic procedure in her 30s S/P tubal ligation Laparoscopic procedure in 1994 via umbilicus Family History Mother Hypertension Father CAD (coronary artery disease) Other No pertinent family history Physical Exam Const: COMMON NORMALS: no acute distress, patient oriented x3 and healthy appearing HENMT: COMMON NORMALS: normocephalic and atraumatic HEAD & SCALP: normocephalic and atraumatic Eye: COMMON NORMALS: Equal, round and reactive pupils present and EOMs intact bilaterally PUPIL: Yes Equal, round and reactive pupils present Neck/C-Spine: COMMON NORMALS: full ROM and supple Chest: COMMONS NORMALS: normal inspection of the chest Resp: COMMON NORMALS: normal respiratory effort, No retractions, No use of accessory muscles and clear to auscultation bilaterally AUSCULTATION: clear to auscultation bilaterally Cardio: COMMON NORMALS: regular rate, regular rhythm and No murmurs present (Cardio) RATE: regular rate RHYTHM: regular rhythm GI: COMMON NORMALS: Normal to inspection, nondistended, normoactive bowel sounds present, Soft to palpation, non-tender and no masses PALPATION: Yes Soft to palpation Extremity: COMMON NORMALS: normal to inspection and full ROM Neuro: COMMON NORMALS: patient oriented x3, moves all extremities and no focal motor deficits Psych: COMMON NORMALS: mental status grossly normal, Normal thought process present and cooperative THOUGHT PROCESS: Normal thought process present Skin: COMMON NORMALS: no rashes or lesions noted and no wounds GENERAL SKIN EXAM: no rashes or lesions noted Course Vital Signs: Vital signs: Vital Signs Temperature 97.4 F L 04/15/23 23:01 Pulse Rate 78 04/15/23 23:47 Respiratory Rate 16 04/15/23 23:47 Blood Pressure 189/99 04/15/23 23:01 Pulse Oximetry 98 04/15/23 23:47 Oxygen Delivery Me thod Room Air 04/15/23 23:01 MDM - Female Medical Decision Making Patient presents for pelvic pain its been chronic in nature imaging and blood work and urinalysis here are all normal she is to follow back up with her OB Dr. Moses return if worsening. Medical Records I reviewed the patient's medical records. Lab Data I reviewed the patient's lab results. 04/15/23 23:20 04/15/23 23:20 Radiology Impressions Abdomen/Pelvis CT 04/15/23 23:14 IMPRESSION: No clear-cut acute abdominopelvic abnormality. Laboratory Results WBC 9.59 10^3/uL (3.29-11.43) 04/15/23 23:20 RBC 4.55 10^6/uL (3.85-5.65) 04/15/23 23:20 Hgb 12.30 g/dL (11.27-16.99) 04/15/23 23:20 Hct 37.1 % (36-47) 04/15/23 23:20 MCV 81.5 fl (85-98) L 04/15/23 23:20 MCH 27.0 pg (27-33) 04/15/23 23:20 MCHC 33.2 g/dL (30-55) 04/15/23 23:20 RDW 12.9 % (12.1-15.1) 04/15/23 23:20 Plt Count 427 10^3/cmm (157-399) H 04/15/23 23:20 MPV 9.3 fL (7.4-10.4) 04/15/23 23:20 Neut % (Auto) 61.4 % 04/15/23 23:20 Lymph % (Auto) 30.2 % 04/15/23 23:20 Caroline % (Auto) 5.8 % 04/15/23 23:20 Eos % (Auto) 1.9 % 04/15/23 23:20 Baso % (Auto) 0.5 % 04/15/23 23:20 Neut # (Auto) 5.88 10^3/uL (1.8-7.7) 04/15/23 23:20 Lymph # (Auto) 2.9 10^3/uL (0.8-4.8) 04/15/23 23:20 Caroline # (Auto) 0.6 10^3/uL (0.2-0.9) 04/15/23 23:20 Eos # (Auto) 0.2 10^3/uL (0.0-0.8) 04/15/23 23:20 Baso # (Auto) 0.1 10^3/uL (0.0-0.1) 04/15/23 23:20 Nucleated RBC % (auto) 0 % 04/15/23 23:20 Nucleated RBCs # 0.0 /100WBC 04/15/23 23:20 Sodium 138 mmol/L (136-145) 04/15/23 23:20 Potassium 3.9 mmol/L (3.5-5.1) 04/15/23 23:20 Chloride 101 mmol/L (98-107) 04/15/23 23:20 Carbon Dioxide 25 mmol/L (22-29) 04/15/23 23:20 Anion Gap 15.9 (5-19) 04/15/23 23:20 BUN 14 mg/dL (6-20) 04/15/23 23:20 Creatinine 0.6 mg/dL (0.5-0.9) 04/15/23 23:20 GFR Calculation 105.8 mL/min (90-130) 04/15/23 23:20 Glucose 93 mg/dL (65-115) 04/15/23 23:20 Calculated Osmolality 286 mOsm/kg (285-295) 04/15/23 23:20 Calcium 9.1 mg/dL (8.5-10.5) 04/15/23 23:20 Total Bilirubin 0.2 mg/dL (0.15-1.2) 04/15/23 23:20 AST 25 U/L (0-32) 04/15/23 23:20 ALT 13 U/L (0-33) 04/15/23 23:20 Alkaline Phosphatase 115 U/L (35-105) H 04/15/23 23:20 Total Protein 7.5 g/dL (6.6-8.7) 04/15/23 23:20 Albumin 4.1 g/dL (3.5-5.2) 04/15/23 23:20 Globulin 3.4 g/dL (1.3-4.6) 04/15/23 23:20 Urine Color Colorless (Yellow) 04/15/23 23:05 Urine Appearance Clear (CLEAR) 04/15/23 23:05 Urine pH 6.5 (5-7) 04/15/23 23:05 Ur Specific [place] 1.005 (1.005-1.030) 04/15/23 23:05 Urine Protein Neg (Negative) 04/15/23 23:05 Urine Glucose (UA) Norm (Normal) 04/15/23 23:05 Urine Ketones Negative (Negative) 04/15/23 23:05 Urine Blood Neg (Negative) 04/15/23 23:05 Urine Nitrate Negative (Negative) 04/15/23 23:05 Urine Bilirubin Neg (Negative) 04/15/23 23:05 Urine Urobilinogen Neg mg/dL (Negative) 04/15/23 23:05 Ur Leukocyte Esterase Negative (Negative) 04/15/23 23:05 All radiology interpretation(s) finalized by discharge Discharge Plan Discharge Patient Disposition: Home Clinical Impression: Pelvic pain Condition: Stable Prescriptions: No Action loratadine [Claritin] 10 mg tablet 10 mg PO DAILY citalopram [Celexa] 20 mg tablet 30 mg PO DAILY nystatin-triamcinolone 100,000-0.1 unit/gram-% ointment 1 applic topical BID Qty: 30 0RF metronidazole 500 mg tablet 500 mg PO BID Qty: 14 0RF phenazopyridine [Pyridium] 100 mg tablet 100 mg PO TID Qty: 90 1RF nitrofurantoin monohyd/m-cryst [Macrobid] 100 mg capsule 100 mg PO BID Qty: 14 0RF Rx Instructions: must administer with a meal/food solifenacin [Vesicare] 10 mg tablet 10 mg PO DAILY Qty: 30 1RF Discharge Orders: Discharge ED (Routine); Ordered 04/16/23 Ordered By: Michelle Patterson Referrals: Fernando Moses MD [Physician] - 1-3 days Yvette Reed PA [Primary Care Provider] - Discharge Diet: Advance as tolerated Discharge Activity: Resume usual activity Patient Instructions: Pelvic Pain in Women (ED) Coding Level of Care Code ED Collections Clerk for Julián Angel
[2023-04-15] MEDS: iohexol 350 mg/mL 500 mL Btl (per mL) IV (23:28)
[2023-04-15 23:31] LABS: Basophils # 0.1 10^3/uL (0.0-0.1); Basophils % 0.5 %; Eosinophils # 0.2 10^3/uL (0.0-0.8); Eosinophils % 1.9 %; Hematocrit 37.1 % (36-47); Lymphocytes # 2.9 10^3/uL (0.8-4.8); Lymphocytes % 30.2 %; Mean Corpuscular HGB Conc 33.2 g/dL (30-55); Mean Corpuscular Volume 81.5 fl (85-98); Mean Platelet Volume 9.3 fL (7.4-10.4); Monocytes # 0.6 10^3/uL (0.2-0.9); Monocytes % 5.8 %; Neutrophils # 5.88 10^3/uL (1.8-7.7); Neutrophils % 61.4 %; Nucleated Red Blood Cells % 0 %; Platelet Count 427 10^3/cmm (157-399); Red Blood Count 4.55 10^6/uL (3.85-5.65); Red Cell Distribution Width 12.9 % (12.1-15.1); White Blood Count 9.59 10^3/uL (3.29-11.43)
[2023-04-15 23:36] LABS: Add Urine Microscopic? NO; Charge for UA Resulting for Rev
[2023-04-15 23:42] LABS: Bilirubin Urine Neg (Negative); Blood Urine Neg (Negative); Glucose Urine UA Norm (Normal); Ketones Urine Negative (Negative); Leukocyte Esterase Urine Negative (Negative); Nitrate Urine Negative (Negative); Protein Urine Neg (Negative); Specific Gravity, Urine 1.005 (1.005-1.030); Urine Appearance Clear (CLEAR); Urine Color Colorless (Yellow); Urobilinogen Urine Neg (Negative); pH Urine 6.5 (5-7)
[2023-04-15] MEDS: morphine 4 mg/mL SDV 1 mL IVP (23:46)
[2023-04-15 23:47] VITALS: PULSE 78; RESP 16; O2SAT 98
[2023-04-15] MEDS: ondansetron 2 mg/ML SDV 2 mL 4 MG IVP (23:47)
[2023-04-15 23:48] LABS: Albumin Level 4.1 g/dL (3.5-5.2); Alkaline Phosphatase 115 U/L (35-105); Anion Gap 15.9 (5-19); Aspartate Amino Transferase 25 U/L (0-32); Blood Urea Nitrogen 14 mg/dL (6-20); Calcium 9.1 mg/dL (8.5-10.5); Carbon Dioxide 25 mmol/L (22-29); Chloride 101 mmol/L (98-107); Creatinine Clr Calc Pharmacy 122.3773; Globulin 3.4 g/dL (1.3-4.6); Glomerular Filtration Rate 105.8 mL/min (90-130); Glucose 93 mg/dL (65-115); Osmolality Calculated 286 mOsm/kg (285-295); Potassium 3.9 mmol/L (3.5-5.1); Sodium 138 mmol/L (136-145); Total Bilirubin 0.2 mg/dL (0.15-1.2); Total Protein 7.5 g/dL (6.6-8.7)
[2023-04-15 23:59] LABS: Alanine Aminotransferase 13 U/L (0-33)
[2023-04-16 00:20] VITALS: BP 154/96; PULSE 79; RESP 18; O2SAT 98
== END 2023-04-16 00:27 | disposition home or self-care (01) ==
PROVIDERS: Emergency Provider Emergency Medicine; PCP Physician Assistant
DX: R10.2 Pelvic and perineal pain (principal); Z90.710 Acquired absence of both cervix and uterus
CPT/HCPCS: 36415; 74177; 80053; 81003; 85025; 96374; 96375; 99285; J2270; J2405; Q9967

== ENCOUNTER → 2023-04-18 08:27 | Outpatient (BNVA) | payer BC, SELFPAY | PROVIDERS: PCP Physician Assistant; Visit Provider Obstetrics & Gynecology | DX: R39.89 Other symptoms and signs involving the genitourinary system (principal) | CPT/HCPCS: 81000; 87086 ==

== ENCOUNTER 2023-11-17 09:55 | Emergency (ER) | payer BC, SELFPAY ==
[2023-11-17 10:08] VITALS: BP 156/91; PULSE 84; RESP 16; TEMP 36.4; O2SAT 95; BMI 29.2
--- NOTE | 2023-11-17 11:00 | ECG_ITS ---
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 Measurements Intervals Chapman Rate: 81 P: 57 NM: 145 QRS: 15 QRSD: 81 T: 40 QT: 385 QTc: 448 Interpretive Statements SINUS RHYTHM POSSIBLE LEFT ATRIAL ENLARGEMENT [-0.1mV P-WAVE IN V1/V2] LOW QRS VOLTAGE IN PRECORDIAL LEADS [QRS DEFLECTION < 1.0 mV IN CHEST LEADS] Compared to ECG 05/20/2022 19:03:32 Low QRS voltage now present T-wave abnormality no longer present Electronically Signed On 11-17-2023 22:27:21 CDT by Hilario Jackson M.D. [id number]
--- NOTE | 2023-11-17 11:40 | XR_ITS ---
WS: [id number] XR chest 1V portable [id number] REASON FOR EXAM: chest pain FINDINGS: The chest is unchanged compared to 05/20/2022. The heart and the mediastinum are within normal limits. Calcified granulomatous disease bilaterally. No focal lung lesion. No acute pulmonary parenchymal or pleural abnormality. Minimal degenerative spondylosis in the mid and lower thoracic spine. There is been progression of th e bilateral osteoarthritis in the glenohumeral joints compared to the previous examination. There als o appears to be acromial humeral head interval narrowing in both shoulders suggesting significant rot ator cuff tendon disease. XR/XR chest 1V portable [id number] IMPRESSION: Stable chest with no acute abnormality.
[2023-11-17 12:13] LABS: Basophils % 0.5 %; Eosinophils # 0.1 10^3/uL (0.0-0.8); Eosinophils % 1.1 %; Hematocrit 41.1 % (36-47); Lymphocytes # 1.5 10^3/uL (0.8-4.8); Lymphocytes % 18.2 %; Mean Corpuscular HGB Conc 32.4 g/dL (30-55); Mean Corpuscular Hemoglobin 27.4 pg (27-33); Mean Corpuscular Volume 84.6 fl (85-98); Mean Platelet Volume 9.1 fL (7.4-10.4); Monocytes # 0.5 10^3/uL (0.2-0.9); Monocytes % 6.8 %; Neutrophils # 5.81 10^3/uL (1.8-7.7); Neutrophils % 73.1 %; Nucleated Red Blood Cells % 0 %; Platelet Count 405 10^3/cmm (157-399); Red Blood Count 4.86 10^6/uL (3.85-5.65); Red Cell Distribution Width 12.8 % (12.1-15.1); White Blood Count 7.95 10^3/uL (3.29-11.43)
[2023-11-17 12:29] LABS: Troponin(5th) Baseline < 6 ng/L (0-10)
[2023-11-17 12:30] LABS: Anion Gap 14.7 (5-19); Blood Urea Nitrogen 13 mg/dL (6-20); Carbon Dioxide 27 mmol/L (22-29); Chloride 102 mmol/L (98-107); Potassium 4.7 mmol/L (3.5-5.1); Sodium 139 mmol/L (136-145)
[2023-11-17 12:31] LABS: Alanine Aminotransferase 183 U/L (0-33); Albumin Level 4.6 g/dL (3.5-5.2); Alkaline Phosphatase 178 U/L (35-105); Aspartate Amino Transferase 351 U/L (0-32); Calcium 8.6 mg/dL (8.5-10.5); Globulin 2.8 g/dL (1.3-4.6); Glomerular Filtration Rate 105.8 mL/min (90-130); Glucose 86 mg/dL (65-115); Lipase 29 U/L (13-60); Osmolality Calculated 287 mOsm/kg (285-295); Total Bilirubin 0.3 mg/dL (0.15-1.2); Total Protein 7.4 g/dL (6.6-8.7)
== END 2023-11-17 13:45 | disposition left against medical advice (07) ==
LOC: ER 09:57
PROVIDERS: Emergency Medicine; Emergency Provider Family Medicine; PCP Physician Assistant
DX: Z53.21 Procedure and treatment not carried out due to patient leaving prior to being seen by health care provider (principal)
CPT/HCPCS: 36415; 71045; 80053; 83690; 84484; 85025; 93005; 99285

== ENCOUNTER 2023-12-26 15:04 | Outpatient (RCR) | payer BC, SELFPAY | END 2024-01-06 23:59 | disposition home or self-care (01) | LOC: SPT 15:04 | PROVIDERS: Visit Provider Obstetrics & Gynecology | DX: R30.9 Painful micturition, unspecified (principal) | CPT/HCPCS: 97110; 97161; 97530 ==

== ENCOUNTER 2024-01-07 06:00 | Outpatient (RCR) | payer BC, SELFPAY | END 2024-01-11 23:59 | disposition home or self-care (01) | LOC: SPT 06:00 | PROVIDERS: Visit Provider Obstetrics & Gynecology | DX: R30.9 Painful micturition, unspecified (principal); K59.00 Constipation, unspecified | CPT/HCPCS: 97110; 97530 ==

== ENCOUNTER 2024-02-26 14:43 | Outpatient (CLI) | payer BC, SELFPAY ==
--- NOTE | 2024-02-26 14:45 | MM_ITS ---
WS: [id number] BILATERAL 3D TOMOSYNTHESIS DIGITAL SCREENING MAMMOGRAPHY WITH CAD CLINICAL INFORMATION: SCREENING HISTORY: Screening mammogram. No current complaints. COMPARISON: 2021 TECHNIQUE: Bilateral CC and MLO views. FINDINGS: The breasts are composed of heterogeneous fibroglandular density tissue, which can limit the detectio n of small underlying mass lesions. No suspicious mass, asymmetry, calcifications, or architectural d istortion. No evidence of malignancy. MM/MM [facility] tomosynthesis [id number] IMPRESSION: DENSITY: The breasts are heterogeneously dense, which may obscure small masses. BI-RADS: 1 - Negative FOLLOW UP: 1 Year Follow-up Recommend return to annual screening mammography.
== END 2024-02-26 14:44 | disposition home or self-care (01) ==
LOC: RAD 14:44
PROVIDERS: PCP Physician Assistant; Visit Provider Physician Assistant
DX: Z12.31 Encounter for screening mammogram for malignant neoplasm of breast (principal); R92.333 Mammographic heterogeneous density, bilateral breasts
CPT/HCPCS: 77063; 77067

== ENCOUNTER 2024-03-13 08:42 | Emergency (ER) | payer BC, SELFPAY ==
--- NOTE | 2024-03-13 08:51 | XR_ITS ---
WS: [id number] Portable AP upright chest, 03/13/2024 Clinical Data: fever, cough Comparison: Portable chest, 11/17/2023 Findings: No nodules, masses or effusions are seen. The heart is normal. The pulmonary vascularity is not increased. No pneumonia or pneumothorax is seen. XR/XR chest 1V portable [id number] Impression: Negative chest.
[2024-03-13 09:19] VITALS: BP 150/76; PULSE 111; TEMP 37.9; O2SAT 96; BMI 31.7
[2024-03-13] MEDS: acetaminophen 500 mg Tablet 1000 MG PO (11:11)
[2024-03-13 11:12] VITALS: BP 157/85; PULSE 98; O2SAT 100
--- NOTE | 2024-03-13 11:20 | ED_ITS ---
HPI - URI/Sore Throat General: Chief Complaint: Upper Respiratory Infection Stated Complaint: fever, coughing Time Seen by Provider: 03/13/24 11:06 History of Present Illness: 48-year-old female who presents emergenc y room with cough, congestion, fevers, body aches and some shortness of breath over the last 2 days. Symptoms have become worse. No nausea or vomiting. No altered mental status. She is febrile on presentation Related Data Home Medications ?Medication ?Instructions ?Recorded ?Confirmed citalopram 20 mg tablet 20 mg PO DAILY 03/13/24 0206/30 Previous Rx's ?Medication ?Instructions ?Recorded mirabegron 50 mg tablet,extended 50 mg PO DAILY #30 ta bs 05/09/23 release 24 hr (Myrbetriq) solifenacin 10 mg tablet See Rx Instructions .Route 0 06/09/23 .COMPLEX #30 tabs benzonatate 200 mg capsule 200 mg PO TID PRN cough #30 caps 03/13/24 dexamethasone 6 mg tablet 6 mg PO DAILY 5 days #5 tabs 03/13/24 diclofenac sodium 50 mg 50 mg PO BID PRN pain #14 ta bs 03/13/24 tablet,delayed release oseltamivir 75 mg capsule (Tamiflu) 75 mg PO BID 5 day s #10 caps 03/13/24 Allergies Allergy/AdvReac Type Severity Reaction Status Date / Time codeine Allergy ALGY-Hives Verified 03/13/24 09:22 sulfamethoxazole (From Allergy ALGY-Rash Verified 03/13/24 09:22 Bactrim) tramadol Allergy ALGY-Rash Verified 03/13/24 09:22 trimethoprim (From Bactrim) Allergy ALGY-Rash Verified 03/13/24 09:22 Review of Systems Narrative: Constitutional symptoms: Negative except as documented in HPI. Skin symptoms: Negative except as documented in HPI. Eye symptoms: Negative except as documented in HPI. ENMT symptoms: Negative except as documented in HPI. Respiratory symptoms: Negative except as documented in HPI. Cardiovascular symptoms: Negative except as documented in HPI. Gastrointestinal symptoms: Negative except as documented in HPI. Genitourinary symptoms: Negative except as documented in HPI. Musculoskeletal symptoms: Negative except as documented in HPI. Neurologic symptoms: Negative except as documented in HPI. Psychiatric symptoms: Negative except as documented in HPI. Endocrine symptoms: Negative except as documented in HPI. PFSH ED PFSH: Medical History (Updated 03/13/24 @ 12:04 by Sharon Lira MD) No pertinent past medical history Denies history of asthma, diabetes, hypertension, seizures, DVT/PE/clotting problems Surgical History H/O nephrolithotomy with removal of calculi Done transurethrally S/P cholecystectomy Laparoscopic procedure in her 30s S/P tubal ligation Laparoscopic procedure in 1994 via umbilicus Family History Mother Hypertension Father CAD (coronary artery disease) Other No pertinent family history Physical Exam Narrative: EXAM NARRATIVE: General: Alert, no acute distress. Skin: Warm, dry. Head: Normocephalic, atraumatic. Neck: Supple, trachea midline. Eye: Extraocular movements are intact. Ears, nose, mouth and throat: mucosa moist. Cardiovascular: Regular, Normal peripheral perfusion. Respiratory: Lungs are clear to auscultation, respirations are non-labored, breath sounds are equal, Symmetrical chest wall expansion. Gastrointestinal: Soft, Nontender, Non distended Musculoskeletal: Normal ROM, no deformity. Neurological: Alert and oriented, No focal neurological deficit observed. Psychiatric: Cooperative, appropriate mood & affect. Course Vital Signs: Vital signs: Vital Signs Temperature 100.3 F H 03/13/24 09:19 Pulse Rate 98 03/13/24 11:12 Blood Pressure 157/85 03/13/24 11:12 Pulse Oximetry 100 03/13/24 11:12 Oxygen Delivery Me thod Room Air 03/13/24 11:12 MDM - URI/Sore Throat Medical Decision Making Chest x-ray: No acute process. No infiltrate. No pneumothorax. This was reviewed and interpreted by myself the emergency room physician. I also reviewed the radiology report. Assessment and plan: Influenza A - Discharged home - Discussed plan with patient. Answered any questions. - Evaluation and treatment of this problem were appropriate in the emergency setting. Lab Data Radiology Impressions Chest X-Ray 03/13/24 08:51 Impression: Negative chest. Laboratory Results Coronavirus (PCR) Negative (Negative) 03/13/24 10:46 Influenza A (PCR) Positive (Negative) 02/05/25 10:46 Influenza Type B (PCR) Negative (Negative) 03/13/24 10:46 RSV (PCR) Negative (Negative) 03/13/24 10:46 All radiology interpretation(s) finalized by discharge Discharge Plan Discharge Patient Disposition: Home Clinical Impression: Influenza A Condition: Stable Prescriptions: New benzonatate 200 mg capsule 200 mg PO TID PRN (Reason: cough) Qty: 30 0RF dexamethasone 6 mg tablet 6 mg PO DAILY 5 Days Qty: 5 0RF oseltamivir [Tamiflu] 75 mg capsule 75 mg PO BID 5 Days Qty: 10 0RF diclofenac sodium 50 mg tablet,delayed release (DR/EC) 50 mg PO BID PRN (Reason: pain) Qty: 14 0RF No Action Myrbetriq 50 mg tablet extended release 24 hr 50 mg PO DAILY Qty: 30 3RF solifenacin 10 mg tablet See Rx Instructions .ROUTE .COMPLEX Qty: 30 0RF Dose Instruction: Take 1 tablet by mouth once daily Rx Instructions: Take 1 tablet by mouth once daily citalopram 20 mg tablet 20 mg PO DAILY Discharge Orders: Discharge ED (Routine); Ordered 03/13/24 Ordered By: Sharon Lira Referrals: Yvette Reed PA [Primary Care Provider] - Discharge Diet: Usual diet Discharge Activity: Increase activity as tolerated Patient Instructions: Influenza (ED), Opioid Safety, Pain Management Activity Restrictions/Additional Instructions: Thank you for choosing [facility] for your healthcare needs today. Please realize this is an emergency room and that we are providing you with a medical screening exam and this may not be complete and all inclusive of all the testing and or work up that you may need to determine your ailment or severity of your illness. You have been screened and evaluated and felt safe for discharge. Health conditions do change or evolve sometimes and as such it is important that you follow up with your Primary Doctor to be re checked, 3-5 days is a general good time frame for follow up. You are always welcome to return to the ED for re assessment if your symptoms are worsening or you have new concerns Print Language: Cameroonian Coding Level of Care Code ED Editor & Co Founder for Julián Angel
[2024-03-13 12:01] LABS: Covid PCR NEGATIVE (Negative); Influenza A POSITIVE (Negative); Influenza B NEGATIVE (Negative); Respiratory Syncytial Virus Ce NEGATIVE (Negative)
[2024-03-13 12:11] VITALS: BP 141/82; PULSE 97; O2SAT 92
== END 2024-03-13 12:13 | disposition home or self-care (01) ==
PROVIDERS: Emergency Provider Emergency Medicine; PCP Physician Assistant
DX: J10.1 Influenza due to other identified influenza virus with other respiratory manifestations (principal); Z11.52 Encounter for screening for COVID-19
CPT/HCPCS: 71045; 87637; 99284